=== PATIENT | female | born 1935 | race Caucasian/White ===

== ENCOUNTER → 2020-06-25 10:30 | Outpatient (CLI) | payer MEDICARE, OTHER, SELFPAY ==
--- NOTE | 2020-06-25 10:33 | DI.RAD.S_ITS ---
PROCEDURE: XR CHEST 2V INDICATIONS: rib pain TECHNIQUE: 2 views of the chest were acquired. COMPARISON: [facility], , CHEST 1 VIEW, 02/27/2015, 11:19. FINDINGS: Surgical changes and devices: Surgical clips in bilateral axilla and left breast are seen. Lungs and pleura: There is hyperinflation. No focal infiltrate. No pleural effusions or pneumothorax. Mediastinum: Mediastinal contours are normal. Heart size is normal. Bones and chest wall: No suspicious bony abnormalities. Soft tissues appear unremarkable. IMPRESSION: No acute cardiopulmonary pathology. COPD. Dictated by: Satish Woodward M.D. on 06/25/2020 at 13:23 Approved by: Satish Woodward M.D. on 06/25/2020 at 13:26
== END ==
PROVIDERS: Family Provider Family Medicine; PCP Family Medicine; Referring Provider Family Medicine; Visit Provider Family Medicine
DX: R07.81 Pleurodynia (principal); J44.9 Chronic obstructive pulmonary disease, unspecified
CPT/HCPCS: 71046

== ENCOUNTER → 2021-06-01 11:00 | Outpatient (CLI) | payer MEDICARE, OTHER, SELFPAY ==
--- NOTE | 2021-06-01 11:01 | DI.RAD.S_ITS ---
PROCEDURE: XR LUMBAR SPINE MIN 4V INDICATIONS: BACK PAIN TECHNIQUE: 5 views of the lumbar spine were acquired, including bilateral oblique views. COMPARISON: [facility], SPINE LUMB MIN 4VW, 11/10/2016, 15:28. FINDINGS: Bones: 5 nonrib-bearing vertebrae are present. Levocurvature of the lumbar spine, which may reflect degenerative scoliosis. The vertebral body heights are essentially maintained. Disc height loss with endplate osteophytosis, partially exaggerated by the aforementioned curvature. Facet arthrosis, causing neural foraminal narrowing. Soft tissues: Overlying bowel gas pattern is normal. No suspicious soft tissue calcifications. Oblique images: No pars defects. IMPRESSION: Levoscoliosis, possibly degenerative. Dictated by: Nishant Arcos M.D. on 06/01/2021 at 12:08 Approved by: Nishant Arcos M.D. on 06/01/2021 at 12:11
== END ==
PROVIDERS: Family Provider Family Medicine; PCP Family Medicine; Referring Provider Physical Medicine & Rehabilitation; Visit Provider Physical Medicine & Rehabilitation
DX: M41.25 Other idiopathic scoliosis, thoracolumbar region (principal); M54.9 Dorsalgia, unspecified; R07.81 Pleurodynia
CPT/HCPCS: 72110; 99214

== ENCOUNTER → 2021-06-09 09:46 | Outpatient (CLI) | payer MEDICARE, OTHER, SELFPAY ==
--- NOTE | 2021-06-09 09:47 | DI.MRI.S_ITS ---
PROCEDURE: MR LUMBAR SPINE WO CON INDICATIONS: Left-sided pain status post fall thoracolumbar junction TECHNIQUE: Noncontrast sagittal T1 spin echo and T2 fast echo, sagittal STIR, axial T1 and T2 fast spin echo through the lumbar spine. In cases with scoliosis, additional coronal T2 fast spin echo may be performed. COMPARISON: [facility], CR, XR LUMBAR SPINE MIN 4V, 06/01/2021, 11:01. [facility], CR, SPINE LUMB MIN 4VW, 11/10/2016, 15:28. FINDINGS: Image quality: Excellent. Alignment and Curvature: There is trace L1-L2 and L2-L3 retrolisthesis. There is approximately 30? of convex left scoliosis. Bone Marrow: Modic type 3 reactive endplate changes noted adjacent to the L1-L2 and L2-L3 discs. No acute vertebral body compression fractures. Spinal Cord: Conus medullaris terminates at the L1 level. Visualized cord demonstrates normal signal and size. Paraspinous Soft Tissues: No paravertebral masses. T12-L1: Loss of disc signal and slight loss of disc height. Mild to moderate diffuse disc bulge. Mild bilateral facet hypertrophy. Mild narrowing of the central canal. Mild bilateral neural foraminal narrowing. No neural compression. L1-L2: Loss of disc signal and height. Mild to moderate diffuse disc bulge. Mild bilateral facet hypertrophy. Mild to moderate narrowing of the central canal. Moderate bilateral neural foraminal narrowing. No neural compression. L2-L3: Loss of disc signal and height. Mild, diffuse disc bulge. Mild bilateral facet hypertrophy. Mild to moderate narrowing of the central canal. Severe right and mild left neural foraminal narrowing with slight compression of the exiting right L2 nerve root. L3-L4: Loss of disc signal. Moderate, diffuse disc bulge. Mild bilateral facet hypertrophy. Moderate ligamentum flavum hypertrophy. Moderate narrowing of the central canal. Mild to moderate bilateral neural foraminal narrowing. No neural compression. L4-L5: Loss of disc signal. Moderate, diffuse disc bulge. Moderate bilateral facet hypertrophy. Moderate ligamentum flavum hypertrophy. Severe narrowing of the central canal with compression of the nerve roots of the cauda equina. Mild right and severe left neural foraminal narrowing with compression of the exiting left L4 nerve root. L5-S1: Loss of disc signal. Mild, diffuse disc bulge. Mild right moderate left facet hypertrophy. Mild narrowing of the central canal. Mild right and severe left neural foraminal narrowing with compression of the exiting left L5 nerve root. IMPRESSION: 1. Convex left scoliosis. 2. Multilevel degenerative disc disease. 3. Multilevel facet arthropathy. 4. Severe L4-L5 central canal narrowing with compression of the traversing nerve roots of the cauda equina. 5. Severe right L2-L3 neural foraminal narrowing with compression of the exiting right L2 nerve root. Severe L4-L5 and L5-S1 neural foraminal narrowing with compression of the exiting left L4 and L5 nerve roots. Dictated by: Gin Ghosh MD, PhD on 06/09/2021 at 14:57 Approved by: Gin Ghosh MD, PhD on 06/09/2021 at 15:02
== END ==
PROVIDERS: Family Provider Family Medicine; PCP Family Medicine; Referring Provider Physical Medicine & Rehabilitation; Visit Provider Physical Medicine & Rehabilitation
DX: M51.37 Other intervertebral disc degeneration, lumbosacral region (principal); M47.816 Spondylosis without myelopathy or radiculopathy, lumbar region; M47.817 Spondylosis without myelopathy or radiculopathy, lumbosacral region; M51.36 Other intervertebral disc degeneration, lumbar region; M48.061 Spinal stenosis, lumbar region without neurogenic claudication; M48.07 Spinal stenosis, lumbosacral region; M41.86 Other forms of scoliosis, lumbar region; M54.9 Dorsalgia, unspecified; R20.0 Anesthesia of skin; R20.2 Paresthesia of skin; M41.9 Scoliosis, unspecified
CPT/HCPCS: 72148

== ENCOUNTER 2021-09-15 14:11 | Outpatient (CLI) | payer MEDICARE, OTHER, SELFPAY ==
[2021-09-15] VITALS (7 sets, daily range): BP systolic 120–162; BP diastolic 64–70; PULSE 55–62; RESP 12–19; TEMP 36.6; O2SAT 97–100
--- NOTE | 2021-09-15 14:12 | DI.RAD.S_ITS ---
PROCEDURE: PAIN L INTERLAMINAR/CAUDAL INJ INDICATIONS: SPONDYLOSIS COMPARISON: [facility], CR, XR LUMBAR SPINE MIN 4V, 06/01/2021, 11:01. [facility], MR, MR LUMBAR SPINE WO CON, 06/09/2021, 9:55. FINDINGS: Fluoroscopic spot filming was performed to verify placement of a spinal needle at the L2-L3 level, as labeled on the films. Appropriate location of the needle tip was confirmed by injection of iodinated contrast. IMPRESSION: Intraprocedural examination within normal limits. Dictated by: Franki Castro M.D. on 09/15/2021 at 14:58 Approved by: Franki Castro M.D. on 09/15/2021 at 14:58
[2021-09-15 14:46] LABS: COVID19 -Nasal RAPID Negative (Negative)
[2021-09-15] MEDS: MIDAZOLAM 2 MG/2 ML VIAL IV (15:20)
[2021-09-15] MEDS: IOPAMIDOL 15 ML VIAL 3 ML INJ (15:23)
[2021-09-15] MEDS: DEXAMETHASONE 10 MG/ML VIAL 20 MG INJ (15:24)
[2021-09-15] MEDS: BETAMETHASONE 30 MG/5 ML MDV 6 MG INJ (15:24)
[2021-09-15] MEDS: BUPIVACAINE 0.25% (PF) VIAL 2 ML INJ (15:24)
--- NOTE | 2021-09-15 15:36 | P.PCN_ITS ---
Date/Time/Diagnoses Date of procedure: 09/15/21 Time of procedure: 15:36 Pre-procedure diagnosis: 1. HNP WITH RADICULAR FEATURES, 2. MULTILEVEL CENTRAL STENOSIS, Post-procedure diagnosis: same Procedure Notes Procedure: 1. FLUOROSCOPICALLY GUIDED CONTRAST CONTROLLED INTERLAMINAR EPIDURAL STEROID INJECTION - L2/3 Indications: Miracle is referred by Dr. Manjarrez for treatment of Bilateral Foraminal Stenosis L>R LE symptoms. Physician: Hunter Lebron Total Fluoroscopy time (seconds): 8 Total sedation minutes: 10 Complications: none Procedure in detail & Post-procedure care: FINDINGS Multilevel Central Spinal Stenosis with Nerve Root Compression DESCRIPTION OF PROCEDURE Fluoroscopically guided, contrast-controlled L2/3 translaminar epidural steroid injection. Following review of allergy and review of potential side effects and complications, including, but not necessarily limited to, infection, allergic reaction, local tissue breakdown, temporary as well as permanent nerve injury, paralysis, stroke and possible , the patient indicated that the patient understood and agreed to proceed. An informed consent document was signed by the patient, witnessed by a nurse, and placed in the patient's chart. Additionally, other treatment options including modalities, medications, and physical therapy were reviewed with the patient. After review of previous anaesthesic history and IV conscious sedation the patient was deemed safe to proceed with today?s procedure with IV conscious sedation as ASA class II designation. Safety time-out was performed to confirm patient ID, procedure to be performed and site of procedure. IV sedation was accomplished with a combination of 2mg Versed administered by the RN after DO order, titrated to patient comfort during the course of the procedure while the patient remained responsive to all verbal commands. In the prone position, following sterile prep and drape of the lumbar region,the L2/3 translaminar space was identified fluoroscopically. The skin was anesthetized via a 25-gauge, 1.5-inch needle with 1% lidocaine solution. At this point, a 22-gauge short bevel spinal needle was atraumatically introduced and advanced under fluoroscopic guidance into the region of the L2/3 translaminar space. Depth was confirmed on lateral view. Radiological data, including multiple fluoroscopic views of the lumbar spine, re veal a spinal needle at the L2/3 translaminar space. Lateral views then show placement of the needle in the epidural space. Subsequent views show contrast material flowing superiorly and inferiorly in the epidural space. No vascular or intrathecal uptake is observed. At this point, using loss of resistance technique with saline and air, the epidural space was entered. This was confirmed following negative aspiration with injection of approximately 1.5 cc of Isovue 200, showing excellent epidural flow without vascular or intrathecal uptake. At this point, 1 cc of 1% lidocaine solution combined with 3cc or 20mg of dexamethasone and 6mg of betamethasone was injected without incident. The patient tolerated the procedure well without signs or symptoms of complications prior to transfer to the recovery area continued monitoring without incident. The patient was then transferred to the recovery area where they were observed for an appropriate period of time after the injection. The patient reported a VAS score of 6 prior to the procedure and a post-procedure VAS of 0. POST OP INSTRUCTIONS The patient was provided a Pain Log to continue to record their response to the target-specific procedure prior to follow-up visit with their referring physician. Additionally, specific post-injection care instructions and a contact number to our office were provided if concerns arise regarding possible complications associated with the procedure are suspected.
== END 2021-09-15 15:51 | disposition home or self-care (01) ==
LOC: RAD 14:12
PROVIDERS: Family Provider Family Medicine; PCP Family Medicine; Referring Provider Physical Medicine & Rehabilitation; Visit Provider Physical Medicine & Rehabilitation
DX: M47.816 Spondylosis without myelopathy or radiculopathy, lumbar region (principal); M48.062 Spinal stenosis, lumbar region with neurogenic claudication; Z20.822 Contact with and (suspected) exposure to COVID-19
CPT/HCPCS: 62323; 87635; 99152; J0702; J1100; J2250

== ENCOUNTER → 2021-10-21 08:28 | Outpatient (CLI) | payer MEDICARE, SELFPAY ==
[2021-10-21 20:30] LABS: Add Manual Diff / Slide Review NO; Basophils Absolute Auto 100 /uL (0-100); Basophils Percent Auto 0.9 % (0-2); Eosinophils Absolute Auto 200 /uL (0-450); Eosinophils Percent Auto 2.7 % (2-4); Hematocrit 36.9 % (36-46); Hemoglobin 12.4 g/dL (12.0-16.0); Lymphocytes Absolute Auto 1200 /uL (1100-4500); Lymphocytes Percent Auto 17.5 % (25-40); Mean Corpuscular HGB Conc 33.7 % (30-36); Mean Corpuscular Hemoglobin 30.7 PG (26-34); Monocytes Absolute Auto 900 /uL (0-900); Monocytes Percent Auto 12.5 % (3-14); Neutrophils Absolute Auto 4500 /uL (1500-7000); Neutrophils Percent Auto 66.4 % (50-75); Platelet Count 375 X10^3/uL (150-400); Red Blood Cell Count 4.05 X10^6/uL (4.0-5.2); Red Cell Distribution Width 13.9 % (11.6-14.8); White Blood Cell Count 6.8 X10^3/uL (4.5-11.0)
[2021-10-21 20:42] LABS: Appearance Urine UA CLEAR; Bilirubin Urine UA NEGATIVE (NEGATIVE); Color Urine UA YELLOW; Glucose Urine UA NEGATIVE (Negative); Ketones Urine UA NEGATIVE (NEGATIVE); Leukocyte Esterase Urine UA NEGATIVE (NEGATIVE); Nitrite Urine UA NEGATIVE (Negative); Occult Blood Urine UA NEGATIVE (Negative); Protein Urine UA NEGATIVE (Negative); Specific Gravity Urine UA <=1.005 (1.000-1.035); Urobilinogen Urine UA 0.2 E.U./dL (0.2)
[2021-10-21 20:46] LABS: Hemoglobin A1C% w Est Avg Glu 5.5 % (4.0-6.0)
[2021-10-21 20:49] LABS: Alanine Aminotransferase 16 IU/L (<35); Albumin Globulin Ratio 1.7 (1.0-2.8); Alkaline Phosphatase 61 U/L (38-126); Aspartate Aminotransferase 28 IU/L (14-36); BUN Creatinine Ratio 24.6 (6-22); Bilirubin Total 0.5 mg/dL (0.2-1.3); Blood Urea Nitrogen 17 mg/dL (7-17); Calcium 9.1 mg/dL (8.4-10.2); Carbon Dioxide 28 mmol/L (22-32); Chloride 96 mmol/L (98-107); Cholesterol 191 mg/dL (140-199); Estimated Glomerular Filt Rate > 60 mL/min (>60); Globulin 2.4 g/dL (1.7-4.1); Glucose 82 mg/dL (80-110); HDL Cholesterol 78 mg/dL (40-60); HEMOLYSIS < 15 (0-50); LDL Cholesterol Calculated 98 mg/dL (<100); Sodium 132 mmol/L (137-145); Total Protein 6.4 g/dL (6.3-8.2); Triglycerides 77 mg/dL (35-150)
[2021-10-22 01:18] LABS: Bacteria Urine None Seen; Culture Indicated Urine Cult Not Indicated; RBC Urine None Seen (0-5/HPF); WBC Urine None Seen (0-5/HPF)
== END ==
PROVIDERS: Family Provider Family Medicine; PCP Family Medicine; Visit Provider Physician Assistant
DX: Z13.1 Encounter for screening for diabetes mellitus (principal); G45.9 Transient cerebral ischemic attack, unspecified; N39.46 Mixed incontinence; E78.2 Mixed hyperlipidemia; I10 Essential (primary) hypertension; R31.9 Hematuria, unspecified; Z13.220 Encounter for screening for lipoid disorders
CPT/HCPCS: 80053; 80061; 81001; 83036; 85025

== ENCOUNTER → 2021-12-15 11:08 | Outpatient (CLI) | payer MEDICARE, SELFPAY ==
[2021-12-15 19:42] LABS: Alanine Aminotransferase 19 IU/L (<35); Albumin 4.1 g/dL (3.5-5.0); Albumin Globulin Ratio 1.5 (1.0-2.8); Alkaline Phosphatase 62 U/L (38-126); Aspartate Aminotransferase 35 IU/L (14-36); BUN Creatinine Ratio 27.8 (6-22); Bilirubin Total 0.4 mg/dL (0.2-1.3); Blood Urea Nitrogen 22 mg/dL (7-17); Calcium 9.5 mg/dL (8.4-10.2); Carbon Dioxide 30 mmol/L (22-32); Chloride 103 mmol/L (98-107); Estimated Glomerular Filt Rate > 60 mL/min (>60); Globulin 2.8 g/dL (1.7-4.1); Glucose 90 mg/dL (80-110); HEMOLYSIS < 15 (0-50); Potassium 4.1 mmol/L (3.4-5.1); Sodium 139 mmol/L (137-145); Total Protein 6.9 g/dL (6.3-8.2)
[2021-12-15 19:46] LABS: Vitamin D 25 Hydroxy (D3) 46.2 ng/mL (30.0-100.0)
[2021-12-15 20:00] LABS: TSH w/ Reflex to FT4 1.12 uIU/mL (0.47-4.68)
[2021-12-15 20:01] LABS: Sodium Urine Random 89 mmol/L (30-90)
[2021-12-15 20:20] LABS: Vitamin B12 608 pg/mL (239-931)
[2021-12-17 13:36] LABS: Osmolality, Serum 295 mOsmol/kg (280-301)
[2021-12-17 15:02] LABS: Osmolality Urine 666 mOsmol/kg (.)
== END ==
PROVIDERS: Family Provider Family Medicine; PCP Family Medicine; Visit Provider Physician Assistant
DX: M81.0 Age-related osteoporosis without current pathological fracture (principal); R53.83 Other fatigue; E87.1 Hypo-osmolality and hyponatremia; G62.9 Polyneuropathy, unspecified; I10 Essential (primary) hypertension
CPT/HCPCS: 80053; 82306; 82607; 83930; 83935; 84300; 84443

== ENCOUNTER → 2022-01-05 09:37 | Outpatient (CLI) | payer MEDICARE, OTHER, SELFPAY | PROVIDERS: Family Provider Family Medicine; PCP Family Medicine; Referring Provider Physician Assistant; Visit Provider Physician Assistant | DX: M81.0 Age-related osteoporosis without current pathological fracture (principal); M85.89 Other specified disorders of bone density and structure, multiple sites | CPT/HCPCS: 77080 ==

== ENCOUNTER → 2022-08-12 08:34 | Outpatient (CLI) | payer MEDICARE, OTHER, SELFPAY ==
[2022-08-12 09:48] LABS: Add Manual Diff / Slide Review NO; Basophils Absolute Auto 100 /uL (0-100); Basophils Percent Auto 1.1 % (0-2); Eosinophils Absolute Auto 300 /uL (0-450); Eosinophils Percent Auto 3.8 % (2-4); Hematocrit 39.1 % (36-46); Lymphocytes Absolute Auto 1500 /uL (1100-4500); Lymphocytes Percent Auto 17.9 % (25-40); Mean Corpuscular HGB Conc 33.1 % (30-36); Mean Corpuscular Hemoglobin 30.3 PG (26-34); Mean Corpuscular Volume 91.3 fL (80-100); Monocytes Absolute Auto 800 /uL (0-900); Neutrophils Absolute Auto 5800 /uL (1500-7000); Neutrophils Percent Auto 68.2 % (50-75); Platelet Count 328 X10^3/uL (150-400); Red Blood Cell Count 4.28 X10^6/uL (4.0-5.2); Red Cell Distribution Width 13.8 % (11.6-14.8); White Blood Cell Count 8.5 X10^3/uL (4.5-11.0)
[2022-08-12 10:11] LABS: Alanine Aminotransferase 22 IU/L (<35); Albumin 4.1 g/dL (3.5-5.0); Albumin Globulin Ratio 1.6 (1.0-2.8); Alkaline Phosphatase 69 U/L (38-126); Aspartate Aminotransferase 29 IU/L (14-36); BUN Creatinine Ratio 23.5 (6-22); Bilirubin Total 0.4 mg/dL (0.2-1.3); Blood Urea Nitrogen 19 mg/dL (7-17); Calcium 9.6 mg/dL (8.4-10.2); Carbon Dioxide 28 mmol/L (22-32); Chloride 103 mmol/L (98-107); Estimated Glomerular Filt Rate > 60 mL/min (>60); Globulin 2.6 g/dL (1.7-4.1); Glucose 72 mg/dL (80-110); HEMOLYSIS < 15 (0-50); Potassium 4.4 mmol/L (3.4-5.1); Sodium 138 mmol/L (137-145); Total Protein 6.7 g/dL (6.3-8.2)
== END ==
PROVIDERS: Family Provider Family Medicine; PCP Physician Assistant; Referring Provider Physician Assistant; Visit Provider Physician Assistant
DX: I10 Essential (primary) hypertension (principal); R53.83 Other fatigue
CPT/HCPCS: 36415; 80053; 85025

== ENCOUNTER 2022-11-18 09:30 | Outpatient (RCR) | payer MEDICARE, OTHER, SELFPAY ==
--- NOTE | 2022-04-20 12:00 | PT.OTN ---
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) Unspecified urinary incontinence (04/20/22) Physical Therapy Treatment Note PT-OP-A Visit Information Start: 04/20/22 10:35 Freq: Status: Active Protocol: Document 04/20/22 11:15 [facility] (Rec: 04/20/22 11:57 [facility] [id number]) Out-Patient Physical Therapy Visit Information Visit Information Visit Type Initial Evaluation Visit Start Time 11:15 Visit Stop Time 12:00 Total Visit Minutes 45 Visit Number 1 Evaluation Information Evaluation Date 04/20/22 PT-OP-B Current Condition Start: 04/20/22 10:35 Freq: Status: Active Protocol: Document 04/20/22 11:15 [facility] (Rec: 04/20/22 11:57 [facility] [id number]) Current Condition History of Current Condition Onset Date in this last year Current Complaints urinary leakage, History of Current Condition urinary leakage that surprises her and comes on all of a sudden, she has been practicing her kegels and is not sure she is doing it right . It helped a little bit at first but she is not sure now if is is helping Pt notes she can occasionally have bowel movement that she can't hold She notes swelling in her feet and legs at night. She does put her feet up the wall x 10 min both morning and night. She has more good nights than bad nights. Her leakage can be just about any time, she wears 1 pad per day and by the end of the day it will be damp She had a cortisone injection in the left L5 last 6 months She took a fall 2 years ago tripping over a steel jose falling on her right side and it took her a year to fully feel back to her self Treatment Goals Patient/Caregiver Goals to eliminate urinary incontinence PT-OP-I Pelvic Floor Start: 04/20/22 10:35 Freq: Status: Active Protocol: Document 04/20/22 11:15 [facility] (Rec: 04/20/22 17:40 [facility] [id number]) Pelvic Floor Assessment Urine Pelvic Floor Surgery No Other Urinary Symptoms pt reports she will leak with certain movements and does not describe a urge to void. She states she never knows when it will happen and calls her leaks surprises Leakage Size Medium Leaks Per Day 3+ Voiding Frequency pt notes she doesn't void all that often but has been trying to void every Nocturia no Urine Pad Type Maxi Pad Pelvic Clock Pelvic Clock 6-9 Guarding Pelvic Clock 9-12 Guarding Pelvic Clock Other pt has guarding on the lateral rosen of the levator ani, it is difficult to relax the lateral rosen of the levator ani in between contractions Contraction Ability Voluntary Relaxation Weak Manual Muscle Testing Left 3 Manual Muscle Testing Right 3 Manual Muscle Testing Anterior 3 Manual Muscle Testing Posterior 3 Muscle Endurance (Seconds) 4 PT-OP-Q Treatments Start: 04/20/22 10:35 Freq: Status: Active Protocol: Document 04/20/22 11:15 [facility] (Rec: 04/20/22 17:35 [facility] [id number]) Therapeutic Exercises Supine Exercises supine hip roll outs Reps/Minutes x 20 reps supine ball squeeze Reps/Minutes x 10 reps supine pelvic floor ioslations Side bilateral Reps/Minutes x 10 reps 10 sec on 10 sec off 3 times per day PT-OP-T Assessment and Plan Start: 04/20/22 10:35 Freq: Status: Active Protocol: Document 04/20/22 11:15 [facility] (Rec: 04/20/22 18:54 [facility] [id number]) Physical Therapy Assessment Rehab Potential Rehabilitation Potential Excellent Evaluation Complexity Number of Personal Factors/Comorbidities 0 Number of Body Systems Impaired 1-2 Clinical Presentation at Evaluation Stable Impairments Impairments Activity Tolerance,Soft Tissue Mobility,Strength,Tone Other Impairments urinary incontinence Goals 3 Impairment Guarding of the lateral rosen of the pelvic floor with decreased ability to fully relax the pelvic floor Short Term Goal (STG) BJ is educated on relaxed awareness of the pelvic floor and the importance of fully relaxing following a pelvic floor contraction STG Duration 4 weeks Environmental Services Worker Goal (LTG) BJ is able to relax to baseline on EMG biofeedback in between pelvic floor contractions LTG Duration 12 weeks 2 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 Short Term Goal (STG) BJ is able to sustain a pelvic floor contraction x 10 seconds in supine utilizing EMG biofeedback STG Duration 5 weeks Retirement Goal (LTG) BJ is able to sustain a pelvic floor contraction for 5-10 seconds in standing positions LTG Duration 12 weeks 1 Impairment BJ has Complaints of urinary incontinence that happens by surprise with activity Short Term Goal (STG) Pt is educated on both triggers that may cause sudden urgency as well as bladder irritants and bladder diary STG Duration 4 weeks Retirement Goal (LTG) BJ is better able to notice triggers that may cause leakage and with strengthening her pelvic floor reports a overall reduction in urinary leakage LTG Duration 12 weeks Assessment Summary Assessment ROEL is a 86 year old female referred to PT with complaints of urinary leakage that happens as a surprise throughout the day and occurs randomly. ROEL is active and walks several times per week and does yoga daily. She states she doesn't leak with cough or sneeze and doesn't feel she has urgency. She occasionally has small leaks of stool. With examination ROEL was guarded in the lateral rosen of her levator ani and she has difficulty relaxing her pelvic floor. Her contraction fatigues after holding 4 seconds. She will benefit from endurance training of her pelvic floor. Treatment will also include strengthening her hips to help give additional support to her levator ani. Physical Therapy Plan Frequency and Duration Frequency of Treatment 1x/Week Duration of treatment (weeks) 12 Plan of Care Start Date 04/20/22 Plan of Care End Date 06/19/22 Therapeutic Interventions Therapeutic Interventions Home Exercise Program,Manual Therapy,Neuromuscular Re- education,Self-Care/Home Management,Therapeutic Exercises Modalities Biofeedback Next Visit Focus/Plan Next Note Type Treatment Note Next Visit Plan Initiate EMG biofeedback next visit working on relaxed awareness of the pelvic floor and endurance training, review triggers that may be causing leakage.
--- NOTE | 2022-04-20 12:00 | PT.OPPOC ---
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 Manuel Manjarrez MD Family Provider Physician Specialty: Family Practice Address: [address] [place] [address], [id number] Email: [email or web address] Maddie Gutierrez MD Attending Provider Physician Referring Provider Specialty: Gynecology REGIONAL ADMINISTRATIVE ASSISTANT Obstetrics Address: [address] [place] [address], [id number] Email: [email or web address] Plan Of Care PT-OP-T Assessment and Plan Start: 04/20/22 10:35 Freq: Status: Active Protocol: Document 04/20/22 11:15 [facility] (Rec: 04/20/22 18:54 [facility] [id number]) Physical Therapy Assessment Rehab Potential Rehabilitation Potential Excellent Evaluation Complexity Number of Personal Factors/Comorbidities 0 Number of Body Systems Impaired 1-2 Clinical Presentation at Evaluation Stable Impairments Impairments Activity Tolerance,Soft Tissue Mobility,Strength,Tone Other Impairments urinary incontinence Goals 3 Impairment Guarding of the lateral rosen of the pelvic floor with decreased ability to fully relax the pelvic floor Short Term Goal (STG) BJ is educated on relaxed awareness of the pelvic floor and the importance of fully relaxing following a pelvic floor contraction STG Duration 4 weeks Engineering Program Analyst Goal (LTG) BJ is able to relax to baseline on EMG biofeedback in between pelvic floor contractions LTG Duration 12 weeks 2 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 Short Term Goal (STG) BJ is able to sustain a pelvic floor contraction x 10 seconds in supine utilizing EMG biofeedback STG Duration 5 weeks Custodial Goal (LTG) BJ is able to sustain a pelvic floor contraction for 5-10 seconds in standing positions LTG Duration 12 weeks 1 Impairment ROEL has Complaints of urinary incontinence that happens by surprise with activity Short Term Goal (STG) Pt is educated on both triggers that may cause sudden urgency as well as bladder irritants and bladder diary STG Duration 4 weeks Custodial Goal (LTG) ROEL is better able to notice triggers that may cause leakage and with strengthening her pelvic floor reports a overall reduction in urinary leakage LTG Duration 12 weeks Assessment Summary Assessment ROEL is a 86 year old female referred to PT with complaints of urinary leakage that happens as a surprise throughout the day and occurs randomly. ROEL is active and walks several times per week and does yoga daily. She states she doesn't leak with cough or sneeze and doesn't feel she has urgency. She occasionally has small leaks of stool. With examination ROEL was guarded in the lateral rosen of her levator ani and she has difficulty relaxing her pelvic floor. Her contraction fatigues after holding 4 seconds. She will benefit from endurance training of her pelvic floor. Treatment will also include strengthening her hips to help give additional support to her levator ani. Physical Therapy Plan Frequency and Duration Frequency of Treatment 1x/Week Duration of treatment (weeks) 12 Plan of Care Start Date 04/20/22 Plan of Care End Date 06/19/22 Therapeutic Interventions Therapeutic Interventions Home Exercise Program,Manual Therapy,Neuromuscular Re- education,Self-Care/Home Management,Therapeutic Exercises Modalities Biofeedback Next Visit Focus/Plan Next Note Type Treatment Note Next Visit Plan Initiate EMG biofeedback next visit working on relaxed awareness of the pelvic floor and endurance training, review triggers that may be causing leakage. Plan of Care Dates Plan of Care Start Date 04/20/22 Plan of Care End Date 06/19/22 Electronically Signed by: Montserrat Warren, PT 04/21/22 [id number] If you are in agreement with this Plan of Care, please return a signed and dated copy. I have reviewed this Plan of Care and certify that the skilled therapy services above are required to meet the patient?s needs. Physician Signature Date Printed Name and Credentials Clinical Instructor Signature Printed Name and Credentials
--- NOTE | 2022-05-05 13:38 | PT.OTN ---
Current Diagnoses Full incontinence of feces (05/05/22) Unspecified urinary incontinence (05/05/22) Physical Therapy Treatment Note PT-OP-A Visit Information Start: 04/20/22 10:35 Freq: Status: Active Protocol: Document 05/05/22 12:54 [facility] (Rec: 05/05/22 13:38 [facility] [id number]) Out-Patient Physical Therapy Visit Information Visit Information Visit Type Treatment Note Visit Start Time 12:50 Visit Stop Time 13:40 Total Visit Minutes 45 Visit Number 2 PT-OP-B Current Condition Start: 04/20/22 10:35 Freq: Status: Active Protocol: Document 04/20/22 11:15 [facility] (Rec: 04/20/22 11:57 [facility] [id number]) Current Condition History of Current Condition Onset Date in this last year Current Complaints urinary leakage, History of Current Condition urinary leakage that suprises her and comes on all of a sudden, she has been practicing her kegels and is not sure she is doing it right . It helped a little bit at first but she is not sure now if is is helping Pt notes she can occasionally have bowelmovement that she can't hold She notes swelling in her feet and legs at night. SHe does put her feet up the wall x 10 min both morning and night. She has more good nights than bad nights. Her leakage can be just about any time, she wears 1 pad per day and by the end of the day it will be damp She had a cortisone injection in the left L5 last 6 months She took a fall 2 years ago tripping over a steel jose falling on her right side and it took her a year to fully feel back to her self Treatment Goals Patient/Caregiver Goals to eliminate urinary incontinence PT-OP-C Subjective Start: 04/20/22 10:35 Freq: Status: Active Protocol: Document 05/05/22 12:54 [facility] (Rec: 05/05/22 13:38 [facility] [id number]) OP-PT Subjective Patient Comments Patient Comments pt has gotten a lashae fit for home She notes that some of her leakage does seem to be spontaneous. PT-OP-I Pelvic Floor Start: 04/20/22 10:35 Freq: Status: Active Protocol: Document 04/20/22 11:15 [facility] (Rec: 04/20/22 17:40 [facility] [id number]) Pelvic Floor Assessment Urine Pelvic Floor Surgery No Other Urinary Symptoms pt reports she will leak with certain movements and does not describe a urge to void. She states she never knows when it will happen and calls her leaks suprises Leakage Size Medium Leaks Per Day 3+ Voiding Frequency pt notes she doesn't void all that often but has been trying to void every Nocturia no Urine Pad Type Maxi Pad Pelvic Clock Pelvic Clock 6-9 Guarding Pelvic Clock 9-12 Guarding Pelvic Clock Other pt has guarding on the lateral rosen of the levator ani, it is difficult to relax the lateral rosen of the levator ani in between contractions Contraction Ability Voluntary Relaxation Weak Manual Muscle Testing Left 3 Manual Muscle Testing Right 3 Manual Muscle Testing Anterior 3 Manual Muscle Testing Posterior 3 Muscle Endurance (Seconds) 4 PT-OP-Q Treatments Start: 04/20/22 10:35 Freq: Status: Active Protocol: Document 05/05/22 12:54 [facility] (Rec: 05/05/22 13:38 [facility] [id number]) Therapeutic Exercises Supine Exercises supine hip roll outs Reps/Minutes x 20 reps supine pelvic floor ioslations Reps/Minutes 11,2 uv and max of 23.3 uv Other Exercises sit-stand with pelvic floor engagement Comments HEP Neuro Re-Education Treatment Other Activities EMG biofeedback for the pelvic floor Comments pt was given a rectal sensor today to use as the vaginal one was too tight for her. She will use this at home as well to gently stretch her pelvic floor, able to get to baseline on EMG, decreased ability to sustain a pelvic floor contraction Self-Care/Home Management Treatment Education Patient Education Home Exercise Program Other Education education on using the rectal sensor vaginally to help with stretching of the tissue prior to using the perifit PT-OP-T Assessment and Plan Start: 04/20/22 10:35 Freq: Status: Active Protocol: Document 05/05/22 12:54 [facility] (Rec: 05/05/22 13:38 [facility] [id number]) Physical Therapy Assessment Goals 3 Impairment Guarding of the lateral rosen of the pelvic floor with decreased ability to fully relax the pelvic floor Short Term Goal (STG) BJ is educated on relaxed awareness of the pelvic floor and the importance of fully relaxing following a pelvic floor contraction STG Duration 4 weeks [employer] Goal (LTG) BJ is able to relax to baseline on EMG biofeedback inbetween pelvic floor contractions LTG Duration 12 weeks 2 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 Short Term Goal (STG) ROEL is able to sustain a pelvic floor contraction x 10 seconds in supine utilizing EMG biofeedback STG Duration 5 weeks Longterm Goal (LTG) ROEL is able to sustain a pelvic floor contraction for 5-10 seconds in standing positions LTG Duration 12 weeks 1 Impairment ROEL has Complaints of urinary incontinence that happens by suprise with activity Short Term Goal (STG) Pt is educated on both triggers that may cause sudden urgency as well as bladder irritants and bladder diary STG Duration 4 weeks [employer] Goal (LTG) ROEL is better able to notice triggers that may cause leakage and with strenghening her pelvic floor reports a overall reduction in urinary leakage LTG Duration 12 weeks Assessment Summary Assessment EMG biofeedback was initiated today for ROEL. The rectal sensor was used as the vaginal one was too tight. She will also use this at home to help with vaginal wall stretching prior to using her perifit. She was able to relax to baseline on EMG biofeedback. Endurance is more difficult for her to sustain a contraction Physical Therapy Plan Frequency and Duration Frequency of Treatment 1x/Week Duration of treatment (weeks) 12 Plan of Care Start Date 04/20/22 Plan of Care End Date 06/19/22 Therapeutic Interventions Therapeutic Interventions Home Exercise Program,Manual Therapy,Neuromuscular Re- education,Self-Care/Home Management,Therapeutic Exercises Modalities Biofeedback Next Visit Focus/Plan Next Note Type Treatment Note Next Visit Plan Continue with EMG biofeedback working on relaxed awareness of the pelvic floor as well as contraction
--- NOTE | 2022-06-09 10:31 | PT.OTN ---
Current Diagnoses Full incontinence of feces (06/09/22) Unspecified urinary incontinence (06/09/22) Physical Therapy Treatment Note PT-OP-A Visit Information Start: 04/20/22 10:35 Freq: Status: Active Protocol: Document 06/09/22 09:42 [facility] (Rec: 06/09/22 10:31 [facility] [id number]) Out-Patient Physical Therapy Visit Information Visit Information Visit Type Treatment Note Visit Start Time 09:45 Visit Stop Time 10:30 Total Visit Minutes 45 Visit Number 4 PT-OP-B Current Condition Start: 04/20/22 10:35 Freq: Status: Active Protocol: Document 04/20/22 11:15 [facility] (Rec: 04/20/22 11:57 [facility] [id number]) Current Condition History of Current Condition Onset Date in this last year Current Complaints urinary leakage, History of Current Condition urinary leakage that suprises her and comes on all of a sudden, she has been practicing her kegels and is not sure she is doing it right . It helped a little bit at first but she is not sure now if is is helping Pt notes she can occasionally have bowelmovement that she can't hold She notes swelling in her feet and legs at night. SHe does put her feet up the wall x 10 min both morning and night. She has more good nights than bad nights. Her leakage can be just about any time, she wears 1 pad per day and by the end of the day it will be damp She had a cortisone injection in the left L5 last 6 months She took a fall 2 years ago tripping over a steel jose falling on her right side and it took her a year to fully feel back to her self Treatment Goals Patient/Caregiver Goals to eliminate urinary incontinence PT-OP-C Subjective Start: 04/20/22 10:35 Freq: Status: Active Protocol: Document 06/09/22 09:42 [facility] (Rec: 06/09/22 10:31 [facility] [id number]) OP-PT Subjective Patient Comments Patient Comments pt has been using the coconut oil and feels she is closer to being able to use the lashae fit at home. SHe is feeling discouraged it is taking her a while. PT-OP-I Pelvic Floor Start: 04/20/22 10:35 Freq: Status: Active Protocol: Document 04/20/22 11:15 [facility] (Rec: 04/20/22 17:40 [facility] [id number]) Pelvic Floor Assessment Urine Pelvic Floor Surgery No Other Urinary Symptoms pt reports she will leak with certain movements and does not describe a urge to void. She states she never knows when it will happen and calls her leaks suprises Leakage Size Medium Leaks Per Day 3+ Voiding Frequency pt notes she doesn't void all that often but has been trying to void every Nocturia no Urine Pad Type Maxi Pad Pelvic Clock Pelvic Clock 6-9 Guarding Pelvic Clock 9-12 Guarding Pelvic Clock Other pt has guarding on the lateral rosen of the levator ani, it is difficult to relax the lateral rosen of the levator ani in between contractions Contraction Ability Voluntary Relaxation Weak Manual Muscle Testing Left 3 Manual Muscle Testing Right 3 Manual Muscle Testing Anterior 3 Manual Muscle Testing Posterior 3 Muscle Endurance (Seconds) 4 PT-OP-Q Treatments Start: 04/20/22 10:35 Freq: Status: Active Protocol: Document 06/09/22 09:42 [facility] (Rec: 06/09/22 10:31 [facility] [id number]) Therapeutic Exercises Supine Exercises quick pelvic floor contractions Reps/Minutes 24.8 supine pelvic floor ioslations Supine Exercise Name vaginal sensor day 1 Reps/Minutes 20 average 29 max Manual Therapy Treatment Soft Tissue Mobilization pelvic floor manual therapy release Comments worked on releasing at the introitus today to help with relaxation of the tissue. Pt has palpable scar tissue and rugged edges too the vaginal introitus. She tolerated gentle manual therapy well. A size small dilator was then used and pt was instructed on home use of a dilator. Neuro Re-Education Treatment Other Activities EMG biofeedback for the pelvic floor Comments Pt was able to use the vaginal sensor today for EMG biofeedback. HEr resting tone was at baseline today Self-Care/Home Management Treatment Education Other Education pt educated on using coconut oil in the sensor prior to applying it as well as a lubricant for the vaginal tissue. pt was given a size small dilator to use to assist with stretching of the vaginal tissue for home. Pts goal is to be able to use her perifit PT-OP-T Assessment and Plan Start: 04/20/22 10:35 Freq: Status: Active Protocol: Document 06/09/22 09:42 [facility] (Rec: 06/09/22 10:31 [facility] [id number]) Physical Therapy Assessment Goals 3 Impairment Guarding of the lateral rosen of the pelvic floor with decreased ability to fully relax the pelvic floor Short Term Goal (STG) ROEL is educated on relaxed awareness of the pelvic floor and the importance of fully relaxing following a pelvic floor contraction STG Duration 4 weeks [facility] Goal (LTG) ROEL is able to relax to baseline on EMG biofeedback inbetween pelvic floor contractions GOAL MET LTG Duration 12 weeks 2 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 Short Term Goal (STG) ROEL is able to sustain a pelvic floor contraction x 10 seconds in supine utilizing EMG biofeedback STG Duration 5 weeks Attending Urologist Goal (LTG) BJ is able to sustain a pelvic floor contraction for 5-10 seconds in standing positions LTG Duration 12 weeks 1 Impairment ROEL has Complaints of urinary incontinence that happens by suprise with activity Short Term Goal (STG) Pt is educated on both triggers that may cause sudden urgency as well as bladder irritants and bladder diary STG Duration 4 weeks Attending Urologist Goal (LTG) ROEL is better able to notice triggers that may cause leakage and with strenghening her pelvic floor reports a overall reduction in urinary leakage LTG Duration 12 weeks Assessment Summary Assessment Pt was able to use the vaginal sensor today for the first time for the EMG biofeedback sensor. Manual therapy was used first to prepare the tissue and ROEL did well with this. She was able to tolerate the size small dilator and then was able to use the vaginal sensor today for EMG biofeedback. Her resting tone was at baseline today and endurance is improving. Physical Therapy Plan Frequency and Duration Frequency of Treatment 1x/Week Duration of treatment (weeks) 12 Plan of Care Start Date 04/20/22 Plan of Care End Date 06/19/22 Therapeutic Interventions Therapeutic Interventions Home Exercise Program,Manual Therapy,Neuromuscular Re- education,Self-Care/Home Management,Therapeutic Exercises Modalities Biofeedback Next Visit Focus/Plan Next Note Type Treatment Note Next Visit Plan continue with vaginal sensor and manual therapy work
--- NOTE | 2022-06-16 13:33 | PT.OTN ---
Current Diagnoses Full incontinence of feces (06/16/22) Unspecified urinary incontinence (06/16/22) Physical Therapy Treatment Note PT-OP-A Visit Information Start: 04/20/22 10:35 Freq: Status: Active Protocol: Document 06/16/22 12:50 [facility] (Rec: 06/16/22 13:31 [facility] [id number]) Out-Patient Physical Therapy Visit Information Visit Information Visit Type Treatment Note Visit Start Time 12:49 Visit Stop Time 13:30 Total Visit Minutes 41 Visit Number 5 PT-OP-B Current Condition Start: 04/20/22 10:35 Freq: Status: Active Protocol: Document 04/20/22 11:15 [facility] (Rec: 04/20/22 11:57 [facility] [id number]) Current Condition History of Current Condition Onset Date in this last year Current Complaints urinary leakage, History of Current Condition urinary leakage that suprises her and comes on all of a sudden, she has been practicing her kegels and is not sure she is doing it right . It helped a little bit at first but she is not sure now if is is helping Pt notes she can occasionally have bowelmovement that she can't hold She notes swelling in her feet and legs at night. SHe does put her feet up the wall x 10 min both morning and night. She has more good nights than bad nights. Her leakage can be just about any time, she wears 1 pad per day and by the end of the day it will be damp She had a cortisone injection in the left L5 last 6 months She took a fall 2 years ago tripping over a steel jose falling on her right side and it took her a year to fully feel back to her self Treatment Goals Patient/Caregiver Goals to eliminate urinary incontinence PT-OP-C Subjective Start: 04/20/22 10:35 Freq: Status: Active Protocol: Document 06/16/22 12:50 [facility] (Rec: 06/16/22 13:31 [facility] [id number]) OP-PT Subjective Patient Comments Patient Comments pt is using the coconut oil and has been stretching with the dilator the size small dilator is easy to insert now and she feels closer to using the perifit PT-OP-I Pelvic Floor Start: 04/20/22 10:35 Freq: Status: Active Protocol: Document 04/20/22 11:15 [facility] (Rec: 04/20/22 17:40 [facility] [id number]) Pelvic Floor Assessment Urine Pelvic Floor Surgery No Other Urinary Symptoms pt reports she will leak with certain movements and does not describe a urge to void. She states she never knows when it will happen and calls her leaks suprises Leakage Size Medium Leaks Per Day 3+ Voiding Frequency pt notes she doesn't void all that often but has been trying to void every Nocturia no Urine Pad Type Maxi Pad Pelvic Clock Pelvic Clock 6-9 Guarding Pelvic Clock 9-12 Guarding Pelvic Clock Other pt has guarding on the lateral rosen of the levator ani, it is difficult to relax the lateral rosen of the levator ani in between contractions Contraction Ability Voluntary Relaxation Weak Manual Muscle Testing Left 3 Manual Muscle Testing Right 3 Manual Muscle Testing Anterior 3 Manual Muscle Testing Posterior 3 Muscle Endurance (Seconds) 4 PT-OP-Q Treatments Start: 04/20/22 10:35 Freq: Status: Active Protocol: Document 06/16/22 12:50 [facility] (Rec: 06/16/22 13:31 [facility] [id number]) Therapeutic Exercises Supine Exercises quick pelvic floor contractions Reps/Minutes 24.8 supine pelvic floor ioslations Supine Exercise Name vaginal sensor day 2 , pt able to self insert Reps/Minutes 31.1 max contraction Manual Therapy Treatment Soft Tissue Mobilization pelvic floor manual therapy release Comments worked on releasing at the introitus today to help with relaxation of the tissue. Pt has palpable scar tissue and rugged edges too the vaginal introitus. She tolerated gentle manual therapy well. A size small dilator was then used and pt was instructed on home use of a dilator. PT-OP-T Assessment and Plan Start: 04/20/22 10:35 Freq: Status: Active Protocol: Document 06/16/22 12:50 [facility] (Rec: 06/16/22 13:31 [facility] [id number]) Physical Therapy Assessment Assessment Summary Assessment Bj is able to use the size small vaginal sensor today without assistance. I worked again on relaxing the pelvic floor and vaginal introitus with manual therapy first. She felt this was very helpful past treatment. The lashae fit was attempted and I was able to insert it 1/2 way in now. Pt will continue working on using the size small dilator for home Physical Therapy Plan Frequency and Duration Frequency of Treatment 1x/Week Duration of treatment (weeks) 12 Plan of Care Start Date 04/20/22 Plan of Care End Date 06/19/22 Therapeutic Interventions Therapeutic Interventions Home Exercise Program,Manual Therapy,Neuromuscular Re- education,Self-Care/Home Management,Therapeutic Exercises Modalities Biofeedback Next Visit Focus/Plan Next Note Type Treatment Note Next Visit Plan continue working on progressing to BJ being able to insert the perifit so that she is able to use her home EMG biofeedback unit
--- NOTE | 2022-06-30 14:03 | PT.OTN ---
Current Diagnoses Full incontinence of feces (06/30/22) Unspecified urinary incontinence (06/30/22) Physical Therapy Treatment Note PT-OP-A Visit Information Start: 04/20/22 10:35 Freq: Status: Active Protocol: Document 06/30/22 12:55 [facility] (Rec: 06/30/22 13:37 [facility] [id number]) Out-Patient Physical Therapy Visit Information Visit Information Visit Type Treatment Note Visit Start Time 12:55 Visit Stop Time 13:40 Total Visit Minutes 45 Visit Number 6 PT-OP-B Current Condition Start: 04/20/22 10:35 Freq: Status: Active Protocol: Document 04/20/22 11:15 [facility] (Rec: 04/20/22 11:57 [facility] [id number]) Current Condition History of Current Condition Onset Date in this last year Current Complaints urinary leakage, History of Current Condition urinary leakage that suprises her and comes on all of a sudden, she has been practicing her kegels and is not sure she is doing it right . It helped a little bit at first but she is not sure now if is is helping Pt notes she can occasionally have bowelmovement that she can't hold She notes swelling in her feet and legs at night. SHe does put her feet up the wall x 10 min both morning and night. She has more good nights than bad nights. Her leakage can be just about any time, she wears 1 pad per day and by the end of the day it will be damp She had a cortisone injection in the left L5 last 6 months She took a fall 2 years ago tripping over a steel jose falling on her right side and it took her a year to fully feel back to her self Treatment Goals Patient/Caregiver Goals to eliminate urinary incontinence PT-OP-C Subjective Start: 04/20/22 10:35 Freq: Status: Active Protocol: Document 06/30/22 12:55 [facility] (Rec: 06/30/22 13:37 [facility] [id number]) OP-PT Subjective Patient Comments Patient Comments pt notes she was able to get the lashae fit in by working with the dilators and using coconut oil this past week. Patient Reported Progress Improving PT-OP-I Pelvic Floor Start: 04/20/22 10:35 Freq: Status: Active Protocol: Document 04/20/22 11:15 [facility] (Rec: 04/20/22 17:40 [facility] [id number]) Pelvic Floor Assessment Urine Pelvic Floor Surgery No Other Urinary Symptoms pt reports she will leak with certain movements and does not describe a urge to void. She states she never knows when it will happen and calls her leaks suprises Leakage Size Medium Leaks Per Day 3+ Voiding Frequency pt notes she doesn't void all that often but has been trying to void every Nocturia no Urine Pad Type Maxi Pad Pelvic Clock Pelvic Clock 6-9 Guarding Pelvic Clock 9-12 Guarding Pelvic Clock Other pt has guarding on the lateral rosen of the levator ani, it is difficult to relax the lateral rosen of the levator ani in between contractions Contraction Ability Voluntary Relaxation Weak Manual Muscle Testing Left 3 Manual Muscle Testing Right 3 Manual Muscle Testing Anterior 3 Manual Muscle Testing Posterior 3 Muscle Endurance (Seconds) 4 PT-OP-Q Treatments Start: 04/20/22 10:35 Freq: Status: Active Protocol: Document 06/30/22 12:55 [facility] (Rec: 06/30/22 13:54 [facility] [id number]) Therapeutic Exercises Supine Exercises pelvic floor isolations with the lashae fit Reps/Minutes x 15 min Manual Therapy Treatment Soft Tissue Mobilization pelvic floor manual therapy release Comments worked on releasing at the introitus today to help with relaxation of the tissue. Pt has palpable scar tissue and rugged edges too the vaginal introitus. She tolerated gentle manual therapy well. A size small dilator was then used and pt was instructed on home use of a dilator. Self-Care/Home Management Treatment Education Patient Education Home Exercise Program Other Education education on using the lashae fit cheryl and using the calibration and games for pelvic floor strengthening PT-OP-T Assessment and Plan Start: 04/20/22 10:35 Freq: Status: Active Protocol: Document 06/30/22 12:55 [facility] (Rec: 06/30/22 13:54 [facility] [id number]) Physical Therapy Assessment Goals 3 Impairment Guarding of the lateral rosen of the pelvic floor with decreased ability to fully relax the pelvic floor Short Term Goal (STG) BJ is educated on relaxed awareness of the pelvic floor and the importance of fully relaxing following a pelvic floor contraction As of 06/30/22 this is improving and BJ is doing much better with pelvic floor relaxation STG Duration 4 weeks Legal Billing Specialist Goal (LTG) BJ is able to relax to baseline on EMG biofeedback inbetween pelvic floor contractions GOAL MET LTG Duration 12 weeks 2 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 Short Term Goal (STG) ROEL is able to sustain a pelvic floor contraction x 10 seconds in supine utilizing EMG biofeedback Good progress STG Duration 5 weeks Legal Billing Specialist Goal (LTG) ROEL is able to sustain a pelvic floor contraction for 5-10 seconds in standing positions goal not yet attempted LTG Duration 12 weeks 1 Impairment ROEL has Complaints of urinary incontinence that happens by suprise with activity Short Term Goal (STG) Pt is educated on both triggers that may cause sudden urgency as well as bladder irritants and bladder diary Goal met STG Duration 4 weeks [facility] Goal (LTG) ROEL is better able to notice triggers that may cause leakage and with strenghening her pelvic floor reports a overall reduction in urinary leakage Some progress but still leaking a small amount with suprise leaks LTG Duration 12 weeks Assessment Summary Assessment ROEL is making steady progress with her tissue health. She has progressively been able to work up to the vaginal sensor and now is able to use the perifit home biofeedback. She has been able to start using this program for the past 4 days. ROEL would benefit from continued progression of PT and her visits will be reduced to every other week. Physical Therapy Plan Frequency and Duration Frequency of Treatment Every Other Week Duration of treatment (weeks) 12 Plan of Care Start Date 06/19/22 Plan of Care End Date 09/11/22 Therapeutic Interventions Therapeutic Interventions Home Exercise Program,Manual Therapy,Neuromuscular Re- education,Self-Care/Home Management,Therapeutic Exercises Modalities Biofeedback Next Visit Focus/Plan Next Note Type Treatment Note Next Visit Plan continue working with pelvic floor endurance and ability for ROEL to both contract as well as relax her pelvic floor with EMG biofeedback
--- NOTE | 2022-06-30 14:04 | PT.OPPOC ---
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) Unspecified urinary incontinence (06/30/22) Visit Care Team Role Provider Type Yamile Bauman PA-C Primary Care Provider Advanced Molasses Preparer Specialty: Medical Address: [address] [place] [address], [id number] Email: [email or web address] Manuel Manjarrez MD Family Provider Physician Specialty: Family Practice Address: [address] [place] [address], [address] Email: [email or web address] Maddie Gutierrez MD Attending Provider Physician Referring Provider Specialty: Gynecology FILM COLOR TESTER Obstetrics Address: [address] [place] [address], [address] Email: [email or web address] Plan Of Care PT-OP-T Assessment and Plan Start: 04/20/22 10:35 Freq: Status: Active Protocol: Document 06/30/22 12:55 [facility] (Rec: 06/30/22 13:54 [facility] [id number]) Physical Therapy Assessment Goals 3 Impairment Guarding of the lateral rosen of the pelvic floor with decreased ability to fully relax the pelvic floor Short Term Goal (STG) ROEL is educated on relaxed awareness of the pelvic floor and the importance of fully relaxing following a pelvic floor contraction As of 06/30/22 this is improving and ROEL is doing much better with pelvic floor relaxation STG Duration 4 weeks Refining Machine Operator Goal (LTG) BJ is able to relax to baseline on EMG biofeedback in between pelvic floor contractions GOAL MET LTG Duration 12 weeks 2 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 Short Term Goal (STG) ROEL is able to sustain a pelvic floor contraction x 10 seconds in supine utilizing EMG biofeedback Good progress STG Duration 5 weeks Assisted Goal (LTG) ROEL is able to sustain a pelvic floor contraction for 5-10 seconds in standing positions goal not yet attempted LTG Duration 12 weeks 1 Impairment ROEL has Complaints of urinary incontinence that happens by suprise with activity Short Term Goal (STG) Pt is educated on both triggers that may cause sudden urgency as well as bladder irritants and bladder diary Goal met STG Duration 4 weeks Refining Machine Operator Goal (LTG) ROEL is better able to notice triggers that may cause leakage and with strengthening her pelvic floor reports a overall reduction in urinary leakage Some progress but still leaking a small amount with surprise leaks LTG Duration 12 weeks Assessment Summary Assessment ROEL is making steady progress with her tissue health. She has progressively been able to work up to the vaginal sensor and now is able to use the [employer] home biofeedback. She has been able to start using this program for the past 4 days. ROEL would benefit from continued progression of PT and her visits will be reduced to every other week. Physical Therapy Plan Frequency and Duration Frequency of Treatment Every Other Week Duration of treatment (weeks) 12 Plan of Care Start Date 06/19/22 Plan of Care End Date 09/11/22 Therapeutic Interventions Therapeutic Interventions Home Exercise Program,Manual Therapy,Neuromuscular Re- education,Self-Care/Home Management,Therapeutic Exercises Modalities Biofeedback Next Visit Focus/Plan Next Note Type Treatment Note Next Visit Plan continue working with pelvic floor endurance and ability for ROEL to both contract as well as relax her pelvic floor with EMG biofeedback Plan of Care Dates Plan of Care Start Date 06/19/22 Plan of Care End Date 09/11/22 Electronically Signed by: Montserrat Warren, PT 06/30/22 6732 If you are in agreement with this Plan of Care, please return a signed and dated copy. I have reviewed this Plan of Care and certify that the skilled therapy services above are required to meet the patient?s needs. Physician Signature Date Printed Name and Credentials Clinical Instructor Signature Printed Name and Credentials
--- NOTE | 2022-07-07 11:17 | PT.OTN ---
Current Diagnoses Full incontinence of feces (07/07/22) Unspecified urinary incontinence (07/07/22) Physical Therapy Treatment Note PT-OP-A Visit Information Start: 04/20/22 10:35 Freq: Status: Active Protocol: Document 07/07/22 10:27 [facility] (Rec: 07/07/22 11:16 [facility] [id number]) Out-Patient Physical Therapy Visit Information Visit Information Visit Type Treatment Note Visit Start Time 10:30 Visit Stop Time 11:15 Total Visit Minutes 45 Visit Number 7 PT-OP-B Current Condition Start: 04/20/22 10:35 Freq: Status: Active Protocol: Document 04/20/22 11:15 [facility] (Rec: 04/20/22 11:57 [facility] [id number]) Current Condition History of Current Condition Onset Date in this last year Current Complaints urinary leakage, History of Current Condition urinary leakage that suprises her and comes on all of a sudden, she has been practicing her kegels and is not sure she is doing it right . It helped a little bit at first but she is not sure now if is is helping Pt notes she can occasionally have bowelmovement that she can't hold She notes swelling in her feet and legs at night. SHe does put her feet up the wall x 10 min both morning and night. She has more good nights than bad nights. Her leakage can be just about any time, she wears 1 pad per day and by the end of the day it will be damp She had a cortisone injection in the left L5 last 6 months She took a fall 2 years ago tripping over a steel jose falling on her right side and it took her a year to fully feel back to her self Treatment Goals Patient/Caregiver Goals to eliminate urinary incontinence PT-OP-C Subjective Start: 04/20/22 10:35 Freq: Status: Active Protocol: Document 07/07/22 10:27 [facility] (Rec: 07/07/22 11:16 [facility] [id number]) OP-PT Subjective Patient Comments Patient Comments pt has been using her lashae fit every day. She has been trying to do it in the am. Her symptoms are just a little bit now and then PT-OP-I Pelvic Floor Start: 04/20/22 10:35 Freq: Status: Active Protocol: Document 04/20/22 11:15 [facility] (Rec: 04/20/22 17:40 [facility] [id number]) Pelvic Floor Assessment Urine Pelvic Floor Surgery No Other Urinary Symptoms pt reports she will leak with certain movements and does not describe a urge to void. She states she never knows when it will happen and calls her leaks suprises Leakage Size Medium Leaks Per Day 3+ Voiding Frequency pt notes she doesn't void all that often but has been trying to void every Nocturia no Urine Pad Type Maxi Pad Pelvic Clock Pelvic Clock 6-9 Guarding Pelvic Clock 9-12 Guarding Pelvic Clock Other pt has guarding on the lateral rosen of the levator ani, it is difficult to relax the lateral rosen of the levator ani in between contractions Contraction Ability Voluntary Relaxation Weak Manual Muscle Testing Left 3 Manual Muscle Testing Right 3 Manual Muscle Testing Anterior 3 Manual Muscle Testing Posterior 3 Muscle Endurance (Seconds) 4 PT-OP-Q Treatments Start: 04/20/22 10:35 Freq: Status: Active Protocol: Document 07/07/22 10:27 [facility] (Rec: 07/07/22 11:16 [facility] [id number]) Therapeutic Exercises Supine Exercises piriformis stretch Reps/Minutes hold 1-2 min modified pelvic floor stretch Reps/Minutes hold 1-2 minutes. quick pelvic floor contractions Reps/Minutes 33.6 uv supine hip roll outs Reps/Minutes x 20 reps supine pelvic floor ioslations Reps/Minutes 17.8 average 33.7 max Sidelying Exercises clam shell Reps/Minutes 2 x 10 reps Neuro Re-Education Treatment Other Activities EMG biofeedback for the pelvic floor Comments Pt was able to use the vaginal sensor today for EMG biofeedback. HEr resting tone was at baseline today average pf 17.5 and max of 33. 7 PT-OP-T Assessment and Plan Start: 04/20/22 10:35 Freq: Status: Active Protocol: Document 07/07/22 10:27 [facility] (Rec: 07/07/22 11:16 [facility] [id number]) Physical Therapy Assessment Goals 3 Impairment Guarding of the lateral rosen of the pelvic floor with decreased ability to fully relax the pelvic floor Short Term Goal (STG) BJ is educated on relaxed awareness of the pelvic floor and the importance of fully relaxing following a pelvic floor contraction As of 06/30/22 this is improving and BJ is doing much better with pelvic floor relaxation STG Duration 4 weeks Prison Goal (LTG) BJ is able to relax to baseline on EMG biofeedback inbetween pelvic floor contractions GOAL MET LTG Duration 12 weeks 2 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 Short Term Goal (STG) ROEL is able to sustain a pelvic floor contraction x 10 seconds in supine utilizing EMG biofeedback Good progress STG Duration 5 weeks Prison Goal (LTG) ROEL is able to sustain a pelvic floor contraction for 5-10 seconds in standing positions goal not yet attempted LTG Duration 12 weeks 1 Impairment ROEL has Complaints of urinary incontinence that happens by suprise with activity Short Term Goal (STG) Pt is educated on both triggers that may cause sudden urgency as well as bladder irritants and bladder diary Goal met STG Duration 4 weeks Prison Goal (LTG) ROEL is better able to notice triggers that may cause leakage and with strenghening her pelvic floor reports a overall reduction in urinary leakage Some progress but still leaking a small amount with suprise leaks LTG Duration 12 weeks Assessment Summary Assessment Roel has made great strength gains overall and has been able to continue with her lashae fit at home. We reviewed bladder irritants today as she notes wine some times makes her feel not as strong then next day with her pelvic floor exercises. Physical Therapy Plan Frequency and Duration Frequency of Treatment Every Other Week Duration of treatment (weeks) 12 Plan of Care Start Date 06/19/22 Plan of Care End Date 09/11/22 Therapeutic Interventions Therapeutic Interventions Home Exercise Program,Manual Therapy,Neuromuscular Re- education,Self-Care/Home Management,Therapeutic Exercises Modalities Biofeedback Next Visit Focus/Plan Next Note Type Treatment Note Next Visit Plan review for one final recheck in the next 1-2 months
--- NOTE | 2022-09-01 13:55 | PT.OTN ---
Current Diagnoses Full incontinence of feces (09/01/22) Unspecified urinary incontinence (09/01/22) Physical Therapy Treatment Note PT-OP-A Visit Information Start: 04/20/22 10:35 Freq: Status: Active Protocol: Document 09/01/22 10:37 [facility] (Rec: 09/01/22 11:12 [facility] [id number]) Out-Patient Physical Therapy Visit Information Visit Information Visit Type Treatment Note Visit Start Time 10:35 Visit Stop Time 11:15 Total Visit Minutes 40 Visit Number 8 PT-OP-B Current Condition Start: 04/20/22 10:35 Freq: Status: Active Protocol: Document 04/20/22 11:15 [facility] (Rec: 04/20/22 11:57 [facility] [id number]) Current Condition History of Current Condition Onset Date in this last year Current Complaints urinary leakage, History of Current Condition urinary leakage that suprises her and comes on all of a sudden, she has been practicing her kegels and is not sure she is doing it right . It helped a little bit at first but she is not sure now if is is helping Pt notes she can occasionally have bowelmovement that she can't hold She notes swelling in her feet and legs at night. SHe does put her feet up the wall x 10 min both morning and night. She has more good nights than bad nights. Her leakage can be just about any time, she wears 1 pad per day and by the end of the day it will be damp She had a cortisone injection in the left L5 last 6 months She took a fall 2 years ago tripping over a steel jose falling on her right side and it took her a year to fully feel back to her self Treatment Goals Patient/Caregiver Goals to eliminate urinary incontinence PT-OP-C Subjective Start: 04/20/22 10:35 Freq: Status: Active Protocol: Document 09/01/22 10:37 [facility] (Rec: 09/01/22 11:12 [facility] [id number]) OP-PT Subjective Patient Comments Patient Comments pt notes she is able to control things better and better than she was initialy, it is harder for her to relax all the way, she isn't noticing the sudden leaks as much now. Patient Reported Progress Improving PT-OP-I Pelvic Floor Start: 04/20/22 10:35 Freq: Status: Active Protocol: Document 04/20/22 11:15 [facility] (Rec: 04/20/22 17:40 [facility] [id number]) Pelvic Floor Assessment Urine Pelvic Floor Surgery No Other Urinary Symptoms pt reports she will leak with certain movements and does not describe a urge to void. She states she never knows when it will happen and calls her leaks suprises Leakage Size Medium Leaks Per Day 3+ Voiding Frequency pt notes she doesn't void all that often but has been trying to void every Nocturia no Urine Pad Type Maxi Pad Pelvic Clock Pelvic Clock 6-9 Guarding Pelvic Clock 9-12 Guarding Pelvic Clock Other pt has guarding on the lateral rosen of the levator ani, it is difficult to relax the lateral rosen of the levator ani in between contractions Contraction Ability Voluntary Relaxation Weak Manual Muscle Testing Left 3 Manual Muscle Testing Right 3 Manual Muscle Testing Anterior 3 Manual Muscle Testing Posterior 3 Muscle Endurance (Seconds) 4 PT-OP-Q Treatments Start: 04/20/22 10:35 Freq: Status: Active Protocol: Document 09/01/22 10:37 [facility] (Rec: 09/01/22 11:12 [facility] [id number]) Therapeutic Exercises Supine Exercises piriformis stretch Reps/Minutes hold 1-2 min modified pelvic floor stretch Reps/Minutes hold 1-2 minutes. quick pelvic floor contractions Reps/Minutes 33.6 uv supine hip roll outs Reps/Minutes x 20 reps supine pelvic floor ioslations Reps/Minutes 16.4 and max 25.6 Sidelying Exercises clam shell Reps/Minutes 2 x 10 reps Self-Care/Home Management Treatment Education Patient Education Home Exercise Program Other Education review of all exercises with emphasis on pelvic floor stretches PT-OP-T Assessment and Plan Start: 04/20/22 10:35 Freq: Status: Active Protocol: Document 09/01/22 10:37 [facility] (Rec: 09/01/22 11:12 [facility] [id number]) Physical Therapy Assessment Goals 3 Impairment Guarding of the lateral rosen of the pelvic floor with decreased ability to fully relax the pelvic floor Short Term Goal (STG) BJ is educated on relaxed awareness of the pelvic floor and the importance of fully relaxing following a pelvic floor contraction GOAL MET STG Duration 4 weeks Intermediate Goal (LTG) BJ is able to relax to baseline on EMG biofeedback inbetween pelvic floor contractions GOAL MET LTG Duration 12 weeks 2 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 Short Term Goal (STG) BJ is able to sustain a pelvic floor contraction x 10 seconds in supine utilizing EMG biofeedback Go STG Duration 5 weeks Civil Engineering Professor Goal (LTG) ROEL is able to sustain a pelvic floor contraction for 5-10 seconds in standing positions goal not yet attempted LTG Duration 12 weeks 1 Impairment ROEL has Complaints of urinary incontinence that happens by suprise with activity Short Term Goal (STG) Pt is educated on both triggers that may cause sudden urgency as well as bladder irritants and bladder diary Goal met STG Duration 4 weeks Civil Engineering Professor Goal (LTG) ROEL is better able to notice triggers that may cause leakage and with strenghening her pelvic floor reports a overall reduction in urinary leakage Some progress but still leaking a small amount with suprise leaks LTG Duration 12 weeks Assessment Summary Assessment ROEL continues to work hard on her exercise program. She reports she is not leaking at this point. ROEL continues to use the lashae fit for home exercise. She does tend to hold her breath with exercises and we have been working on relaxed awareness of the pelvic foor as well as isolations without breath hold . ROEL is doing much better with decreased vaginal tissue tightness. She would like one final recheck after working on her own with the lashae fit. Physical Therapy Plan Frequency and Duration Frequency of Treatment one recheck Duration of treatment (weeks) 12 Plan of Care Start Date 09/01/22 Plan of Care End Date 11/24/22 Therapeutic Interventions Therapeutic Interventions Home Exercise Program,Manual Therapy,Neuromuscular Re- education,Self-Care/Home Management,Therapeutic Exercises Modalities Biofeedback Next Visit Focus/Plan Next Note Type Treatment Note Next Visit Plan pt requests one final check in as she likes to see how she is doing on EMG biofeedback, review all HEP next visit
--- NOTE | 2022-09-01 13:57 | PT.OPPOC ---
Physical, Occupational & Speech Therapy At [facility] Current Diagnoses Full incontinence of feces (09/01/22) Unspecified urinary incontinence (09/01/22) Visit Care Team Role Provider Type Yamile Bauman PA-C Primary Care Provider Advanced Scrap Crane Operator Specialty: Medical Address: [address] [place] [address], [address] Email: [email or web address] Manuel Manjarrez MD Family Provider Physician Specialty: Family Practice Address: [address] [place] [address], [address] Email: [email or web address] Maddie Gutierrez MD Attending Provider Physician Referring Provider Specialty: Gynecology GLASS EMBOSSER Obstetrics Address: [address] [place] [address], [address] Email: [email or web address] Plan Of Care PT-OP-T Assessment and Plan Start: 04/20/22 10:35 Freq: Status: Active Protocol: Document 09/01/22 10:37 [facility] (Rec: 09/01/22 11:12 [facility] [id number]) Physical Therapy Assessment Goals 3 Impairment Guarding of the lateral rosen of the pelvic floor with decreased ability to fully relax the pelvic floor Short Term Goal (STG) BJ is educated on relaxed awareness of the pelvic floor and the importance of fully relaxing following a pelvic floor contraction GOAL MET STG Duration 4 weeks Halfway Goal (LTG) BJ is able to relax to baseline on EMG biofeedback inbetween pelvic floor contractions GOAL MET LTG Duration 12 weeks 2 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 Short Term Goal (STG) BJ is able to sustain a pelvic floor contraction x 10 seconds in supine utilizing EMG biofeedback Goal met STG Duration 5 weeks Halfway Goal (LTG) BJ is able to sustain a pelvic floor contraction for 5-10 seconds in standing positions goal not yet met LTG Duration 12 weeks 1 Impairment BJ has Complaints of urinary incontinence that happens by suprise with activity Short Term Goal (STG) Pt is educated on both triggers that may cause sudden urgency as well as bladder irritants and bladder diary Goal met STG Duration 4 weeks Early Childhood Educator Aide Goal (LTG) ROEL is better able to notice triggers that may cause leakage and with strenghening her pelvic floor reports a overall reduction in urinary leakage pt reports overall she is no longer leaking. LTG Duration 12 weeks Assessment Summary Assessment ROEL continues to work hard on her exercise program. She reports she is not leaking at this point. ROEL continues to use the lashae fit for home exercise. She does tend to hold her breath with exercises and we have been working on relaxed awareness of the pelvic foor as well as isolations without breath hold . ROEL is doing much better with decreased vaginal tissue tightness. She would like one final recheck after working on her own with the lashae fit. Physical Therapy Plan Frequency and Duration Frequency of Treatment one recheck Duration of treatment (weeks) 12 Plan of Care Start Date 09/01/22 Plan of Care End Date 11/24/22 Therapeutic Interventions Therapeutic Interventions Home Exercise Program,Manual Therapy,Neuromuscular Re- education,Self-Care/Home Management,Therapeutic Exercises Modalities Biofeedback Next Visit Focus/Plan Next Note Type Treatment Note Next Visit Plan pt requests one final check in as she likes to see how she is doing on EMG biofeedback, review all HEP next visit Plan of Care Dates Plan of Care Start Date 09/01/22 Plan of Care End Date 11/24/22 Electronically Signed by: Montserrat Warren, PT 09/01/22 [id number] If you are in agreement with this Plan of Care, please return a signed and dated copy. I have reviewed this Plan of Care and certify that the skilled therapy services above are required to meet the patient?s needs. Physician Signature Date Printed Name and Credentials Clinical Instructor Signature Printed Name and Credentials
--- NOTE | 2022-11-18 10:28 | PT.OPDS ---
Current Diagnoses Full incontinence of feces (11/18/22) Unspecified urinary incontinence (11/18/22) Visit Care Team Role Provider Type Yamile Bauman PA-C Primary Care Provider Advanced Leather Patcher Specialty: Medical Address: [address] [place] [address], [id number] Email: [email or web address] Manuel Manjarrez MD Family Provider Non-Staff Specialty: Family Practice Address: [address] [place] [address], [address] Email: [email or web address] Maddie Gutierrez MD Attending Provider Physician Referring Provider Specialty: Gynecology MEDICAL CARE MANAGER Obstetrics Address: [address] [place] [address], [address] Email: [email or web address] Visit Number Visit Number 9 Discharge Summary PT-OP-B Current Condition Start: 04/20/22 10:35 Freq: Status: Active Protocol: Document 04/20/22 11:15 [facility] (Rec: 04/20/22 11:57 [facility] [id number]) Current Condition History of Current Condition Onset Date in this last year Current Complaints urinary leakage, History of Current Condition urinary leakage that suprises her and comes on all of a sudden, she has been practicing her kegels and is not sure she is doing it right . It helped a little bit at first but she is not sure now if is is helping Pt notes she can occasionally have bowelmovement that she can't hold She notes swelling in her feet and legs at night. SHe does put her feet up the wall x 10 min both morning and night. She has more good nights than bad nights. Her leakage can be just about any time, she wears 1 pad per day and by the end of the day it will be damp She had a cortisone injection in the left L5 last 6 months She took a fall 2 years ago tripping over a steel jose falling on her right side and it took her a year to fully feel back to her self Treatment Goals Patient/Caregiver Goals to eliminate urinary incontinence PT-OP-C Subjective Start: 04/20/22 10:35 Freq: Status: Active Protocol: Document 11/18/22 09:32 [facility] (Rec: 11/18/22 09:45 [facility] [id number]) OP-PT Subjective Patient Comments Patient Comments pt notes she still has the leakage but it isn't as bad as it was a year ago, she will get little drips at times without warning. PT-OP-I Pelvic Floor Start: 04/20/22 10:35 Freq: Status: Active Protocol: Document 11/18/22 09:45 [facility] (Rec: 11/18/22 10:01 [facility] [id number]) Pelvic Floor Assessment Pelvic Clock Pelvic Clock Other pt is no longer guarded and is able to relax her pelvic floor inbetween contractions SEMG (uV) Baseline 0 10 Second Contraction 15 Recruitment Pattern Good Relaxation Good Holding Good Stability of Hold Good SEMG Stability of Rest Good PT-OP-T Assessment and Plan Start: 04/20/22 10:35 Freq: Status: Active Protocol: Document 11/18/22 10:21 [facility] (Rec: 11/18/22 10:25 [facility] [id number]) Physical Therapy Assessment Goals 3 Impairment Guarding of the lateral rosen of the pelvic floor with decreased ability to fully relax the pelvic floor Short Term Goal (STG) ROEL is educated on relaxed awareness of the pelvic floor and the importance of fully relaxing following a pelvic floor contraction GOAL MET STG Duration 4 weeks Wood Model Maker Goal (LTG) ROEL is able to relax to baseline on EMG biofeedback inbetween pelvic floor contractions GOAL MET LTG Duration 12 weeks 2 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 Short Term Goal (STG) ROEL is able to sustain a pelvic floor contraction x 10 seconds in supine utilizing EMG biofeedback Goal met STG Duration 5 weeks Fdc Goal (LTG) ROEL is able to sustain a pelvic floor contraction for 5-10 seconds in standing positions BJ has been working on this LTG Duration 12 weeks 1 Impairment ROEL has Complaints of urinary incontinence that happens by suprise with activity Short Term Goal (STG) Pt is educated on both triggers that may cause sudden urgency as well as bladder irritants and bladder diary Goal met STG Duration 4 weeks Wood Model Maker Goal (LTG) ROEL is better able to notice triggers that may cause leakage and with strenghening her pelvic floor reports a overall reduction in urinary leakage pt reports overall she is no longer leaking. Just a few drops here and there but better overall LTG Duration 12 weeks Assessment Summary Assessment overall ROEL is doing much better with both her ability to sustain a contraction as well as pelvic floor relaxation at rest. She has the lashae fit for home use for her HEP. At this point she still notes a few drops of urine that leaks. Overall she notes she is much better but the few drops still bother her . I talked to her about HRT options but at this time she is not wanting HRT due to hx of breast cancer. I also talked to her about stem cell injection for the vaginal rosen as well. She will be DC at this time to a I HEP Physical Therapy Plan Discharge Physical Therapy Discharge Reasons Goals Met Discharge Comments DC PT to a I HEP
== END 2022-12-13 14:15 | disposition home or self-care (01) ==
LOC: PHYS 09:30
PROVIDERS: Family Provider Family Medicine; PCP Physician Assistant; Referring Provider Obstetrics & Gynecology; Visit Provider Obstetrics & Gynecology
DX: R32 Unspecified urinary incontinence (principal); R15.9 Full incontinence of feces
CPT/HCPCS: 97110; 97112; 97140; 97161; 97164; 97535

== ENCOUNTER → 2022-11-24 09:02 | Outpatient (CLI) | payer MEDICARE, OTHER, SELFPAY ==
[2022-11-24 19:53] LABS: BUN Creatinine Ratio 22.9 (6-22); Blood Urea Nitrogen 19 mg/dL (7-17); Cholesterol 156 mg/dL (140-199); Estimated Glomerular Filt Rate > 60 mL/min (>60); HDL Cholesterol 62 mg/dL (40-60); LDL Cholesterol Calculated 79 mg/dL (<100); Triglycerides 77 mg/dL (35-150)
== END ==
PROVIDERS: Family Provider Family Medicine; PCP Physician Assistant; Visit Provider Family Medicine
DX: I63.9 Cerebral infarction, unspecified (principal); E78.2 Mixed hyperlipidemia; E87.1 Hypo-osmolality and hyponatremia; I10 Essential (primary) hypertension
CPT/HCPCS: 80061; 82565; 84520

== ENCOUNTER → 2023-03-17 10:22 | Outpatient (CLI) | payer MEDICARE, OTHER, SELFPAY | PROVIDERS: PCP Family Medicine; Visit Provider Physician Assistant Medical | DX: J02.9 Acute pharyngitis, unspecified (principal) | CPT/HCPCS: 87070 ==

== ENCOUNTER → 2023-08-18 08:14 | Outpatient (CLI) | payer MEDICARE, OTHER, SELFPAY ==
[2023-08-18 10:08] LABS: Add Manual Diff / Slide Review NO; Basophils Absolute Auto 100 /uL (0-100); Eosinophils Absolute Auto 200 /uL (0-450); Eosinophils Percent Auto 3.5 % (2-4); Hematocrit 36.9 % (36-46); Hemoglobin 12.2 g/dL (12.0-16.0); Lymphocytes Absolute Auto 1600 /uL (1100-4500); Lymphocytes Percent Auto 24.2 % (25-40); Mean Corpuscular HGB Conc 33.2 % (30-36); Mean Corpuscular Hemoglobin 29.9 PG (26-34); Mean Corpuscular Volume 90.1 fL (80-100); Monocytes Absolute Auto 800 /uL (0-900); Monocytes Percent Auto 12.1 % (3-14); Neutrophils Absolute Auto 4000 /uL (1500-7000); Neutrophils Percent Auto 59.2 % (50-75); Platelet Count 298 X10^3/uL (150-400); Red Blood Cell Count 4.09 X10^6/uL (4.0-5.2); Red Cell Distribution Width 14.1 % (11.6-14.8); White Blood Cell Count 6.7 X10^3/uL (4.5-11.0)
[2023-08-18 12:37] LABS: Alanine Aminotransferase 23 IU/L (<35); Albumin 4.2 g/dL (3.5-5.0); Albumin Globulin Ratio 1.8 (1.0-2.8); Alkaline Phosphatase 63 U/L (38-126); Aspartate Aminotransferase 33 IU/L (14-36); BUN Creatinine Ratio 27.2 (6-22); Bilirubin Total 0.4 mg/dL (0.2-1.3); Blood Urea Nitrogen 22 mg/dL (7-17); Calcium 9.4 mg/dL (8.4-10.2); Carbon Dioxide 28 mmol/L (22-32); Chloride 109 mmol/L (98-107); Cholesterol 145 mg/dL (140-199); Estimated Glomerular Filt Rate > 60 mL/min (>60); Globulin 2.4 g/dL (1.7-4.1); Glucose 78 mg/dL (80-110); HDL Cholesterol 61 mg/dL (40-60); HEMOLYSIS < 15 (0-50); LDL Cholesterol Calculated 74 mg/dL (<100); Potassium 4.2 mmol/L (3.4-5.1); Sodium 140 mmol/L (137-145); Total Protein 6.6 g/dL (6.3-8.2); Triglycerides 49 mg/dL (35-150)
[2023-08-18 13:31] LABS: TSH w/ Reflex to FT4 1.88 uIU/mL (0.47-4.68)
== END ==
PROVIDERS: PCP Family Medicine; Referring Provider Family Medicine; Visit Provider Family Medicine
DX: E78.2 Mixed hyperlipidemia (principal); E87.1 Hypo-osmolality and hyponatremia; I10 Essential (primary) hypertension; G62.9 Polyneuropathy, unspecified
CPT/HCPCS: 36415; 80053; 80061; 84443; 85025

== ENCOUNTER → 2024-02-09 12:14 | Outpatient (CLI) | payer MEDICARE, OTHER, SELFPAY ==
--- NOTE | 2024-02-09 12:16 | DI.RAD.S_ITS ---
PROCEDURE: XR DEXA AXIAL SKELETON INDICATIONS: PRESYNCOPE,HX CVA,OSTEOPENIA,ROUTINE SCREENING COMPARISON: [facility], CR, XR DEXA AXIAL SKELETON, 01/05/2022, 9:55. FINDINGS: Lumbar Spine: Bone mineral density 1.037 g/cm2, T score -0.1. There is interval 0.2% decrease in total lumbar spine bone mineral density. Left Hip: Bone mineral density 0.736 g/cm2, T score -1.7. There is interval 1.8% decrease in left total hip bone mineral density. Left Femoral Neck: Bone mineral density 0.537 g/cm2, T score -2.8. There is interval 25% decrease in left femoral neck bone mineral density. Right Hip: Bone mineral density 0.748 g/cm2, T score -1.6, there is interval 1.8% decrease in right hip bone mineral density. Right Femoral Neck: Bone mineral density 0.701 g/cm2, T score -1.3. There is interval 1.5% decrease in right femoral neck bone mineral density. Fracture Risk Calculation (when applicable): 10-year fracture risk of a major osteoporotic fracture 19% and of a hip fracture 7.4%. (T score greater or equal to -1.0 to: NORMAL) (T score from -1.1 to -2.4: OSTEOPENIA) (T score less than or equal to -2.5: OSTEOPOROSIS) IMPRESSION: Osteoporosis. Follow-up guidelines as follows: Osteoporosis: Consider a repeat DEXA and Vertebral Fracture Assessment (VFA) exam in 2 years or sooner if medically necessary, to reassess this patient's status. Osteopenia: Consider a repeat DEXA in 2-3 years to reassess this patient's status, or if there is a new clinical indication. Normal: Consider a repeat DEXA in 5 years or sooner, or if there is a new clinical indication. All treatment decisions require clinical judgment and consideration of individual patient factors, including patient preferences, comorbidities, previous drug use, risk factors not captured in the FRAX model (e.g., frailty, falls, vitamin D deficiency, increased bone turnover, interval significant decline in bone density ) and possible under- or over-estimation of fracture risk by FRAX. In addition, the NOF Guide recommends that FDA-approved medical therapies be considered in postmenopausal women and men age >= 50 years with a: * Hip or vertebral (clinical or morphometric) fracture * T-score of <=-2.5 at the spine or hip * Ten-year fracture probability by FRAX of >= 3% for hip fracture or >=20% for major osteoporotic fracture. People with diagnosed cases of osteoporosis or at high risk for fracture should have regular bone mineral density tests. For patients eligible for Medicare, routine testing is allowed once every 2 years. The testing frequency can be increased to one year for patients who have rapidly progressing disease, those who are receiving or discontinuing medical therapy to restore bone mass, or have additional risk factors. Dictated by: Satish Woodward M.D. on 02/09/2024 at 13:38 Approved by: Satish Woodward M.D. on 02/09/2024 at 13:48
--- NOTE | 2024-02-09 12:16 | DI.US.S_ITS ---
PROCEDURE: US CAROTID DOPPLER BI INDICATIONS: presyncope, history of CVA TECHNIQUE: Color and pulse Doppler interrogation was performed of both carotid systems, with image documentation and velocity measurements. COMPARISON: [facility], , CAROTID ARTERY DOPPLER BIL, 02/28/2015, 8:16. FINDINGS: Stenosis calculations are based on SRU (Society of Radiologists in Ultrasound) criteria. The flow velocities and the arterial waveforms are normal within both carotid arterial systems. Atherosclerotic plaque is seen on both sides. The estimated degree of internal carotid artery stenosis is less than 50%. Antegrade flow is confirmed within both vertebral arteries. However, there is an irregular waveform seen involving the right vertebral artery. The visualized proximal right subclavian artery is widely patent. IMPRESSION: No hemodynamically significant stenosis is seen. Atherosclerotic plaque is noted bilaterally. Irregular waveform seen of the right internal carotid artery. This can be seen in patients with early subclavian steal. However, the right proximal subclavian artery appears widely patent these images. Dictated by: Franki Castro M.D. on 02/09/2024 at 13:14 Approved by: Franki Castro M.D. on 02/09/2024 at 13:17
--- NOTE | 2024-02-09 12:18 | DI.MG.S_ITS ---
UNILATERAL LEFT DIGITAL SCREENING MAMMOGRAM 3D/2D WITH CAD: 02/09/2024 CLINICAL: Routine screening. Personal history of bilateral breast cancer. Comparison is made to exams dated: 01/12/2023 mammogram, 01/05/2022 mammogram, and 11/29/2019 mammogram - [facility]. The breasts are extremely dense, which lowers the sensitivity of mammography (category d />75% glandular tissue). Current study was also evaluated with a Computer Aided Detection (CAD) system. There are benign post operative findings in the left breast. No significant masses, calcifications, or other findings are seen in the breast. There has been no significant interval change. IMPRESSION: BENIGN There is no mammographic evidence of malignancy. A 1 year screening mammogram is recommended. This exam was interpreted at Station ID: [id number]. NOTE: For mammograms, a report in lay terms will be sent to the patient. Approximately 15% of breast malignancies will not be visualized mammographically. In the management of a palpable breast mass, a negative mammogram must not discourage biopsy of a clinically suspicious lesion. Electronically Signed By: Bola resendez/uri:02/10/2024 13:43:38 letter sent: Normal Exam ACR BI-RADS Category 2: Benign
== END ==
PROVIDERS: Family Provider Family Medicine; PCP Family Medicine; Referring Provider Family Medicine; Visit Provider Family Medicine
DX: I65.23 Occlusion and stenosis of bilateral carotid arteries (principal); Z12.31 Encounter for screening mammogram for malignant neoplasm of breast; I69.30 Unspecified sequelae of cerebral infarction; R92.343 Mammographic extreme density, bilateral breasts; Z85.3 Personal history of malignant neoplasm of breast; R55 Syncope and collapse; M81.0 Age-related osteoporosis without current pathological fracture; Z78.0 Asymptomatic menopausal state
CPT/HCPCS: 77063; 77067; 77080; 93880

== ENCOUNTER 2024-02-15 09:22 | Outpatient (RCR) | payer MEDICARE, OTHER, SELFPAY ==
--- NOTE | 2024-02-15 12:58 | PT.OIE ---
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 Maddie Gutierrez MD Attending Provider Physician Referring Provider Specialty: Gynecology FOUNDATION DRILL OPERATOR HELPER Obstetrics Address: [address] [place] [address], [phone] Email: [email or web address] Physical Therapy Initial Evaluation PT-OP-A Visit Information Start: 02/15/24 09:53 Freq: Status: Active Protocol: Document 02/15/24 09:45 [facility] (Rec: 02/15/24 10:39 [facility] [id number]) Out-Patient Physical Therapy Visit Information Visit Information Visit Type Initial Evaluation Visit Start Time 09:45 Visit Stop Time 10:30 Visit Number 1 Evaluation Information Evaluation Date 02/15/24 PT-OP-B Current Condition Start: 02/15/24 09:53 Freq: Status: Active Protocol: Document 02/15/24 09:45 [facility] (Rec: 02/15/24 10:03 [facility] [id number]) Current Condition History of Current Condition Current Complaints pt reports she has been working on her pelvic floor with the lashae fit but f History of Current Condition she notes urgency and surprise leakage She was given a medication for bladder urgency a couple of weeks ago, and then will recheck in a couple of months. PT-OP-I Pelvic Floor Start: 02/15/24 10:18 Freq: Status: Active Protocol: Document 02/15/24 09:45 [facility] (Rec: 02/15/24 10:27 [facility] [id number]) Pelvic Floor Assessment Urine Urinary Symptoms Urge Sensation Other Urinary Symptoms sudden urinary leakage without warning Leakage Size Large Other Leakage Causes leakage can come on suddenly or with light activity during the day Leaks Per Day 1-3 leaks per day Voiding Frequency every 2.5-3 hours Nocturia 1 Urine Pad Type Panty Liner Pelvic Clock Pelvic Clock Other good muscle tone of the pelvic floor the tissue around the urethra is thin SEMG (uV) Baseline 0 10 Second Contraction 17 Contraction Ability Voluntary Contraction Moderate Voluntary Relaxation Moderate Manual Muscle Testing Left 5 Manual Muscle Testing Right 5 Manual Muscle Testing Anterior 5 Manual Muscle Testing Posterior 5 Muscle Endurance (Seconds) 10 Comments Pelvic Floor Comments 17 uv average and max of 30 uv , good ability to relax at baseline and in between contractions. Overall very good strength of the levator ani musculature PT-OP-Q Treatments Start: 02/15/24 10:18 Freq: Status: Active Protocol: Document 02/15/24 09:45 [facility] (Rec: 02/15/24 10:41 [facility] [id number]) Self-Care/Home Management Treatment Education Other Education discussion on bulkamid verses botox for the bladder spasms and sudden loss of urine PT-OP-T Assessment and Plan Start: 02/15/24 10:18 Freq: Status: Active Protocol: Document 02/15/24 09:45 [facility] (Rec: 02/15/24 12:44 [facility] [id number]) Physical Therapy Assessment Rehab Potential Rehabilitation Potential Excellent Evaluation Complexity Number of Personal Factors/Comorbidities 0 Number of Body Systems Impaired 1-2 Clinical Presentation at Evaluation Stable Impairments Other Impairments urinary incontinence Goals 1 Impairment Miracle seeks consult to measure pelvic floor strength and endurance Short Term Goal (STG) With exam ROEL demonstrates excellent ability to both contract the pelvic floor as well as sustain a pelvic floor contraction for 10 seconds. She is able to fully relax her pelvic floor in between contractions STG Duration 1 day Assessment Summary Assessment Miracle (ROEL) returns to PT today after working on her own for a year with her pelvic floor strengthening using a lashae fit home biofeedback unit. She reports feeling strong in her pelvic floor muscles and despite her work on strengthening she continues to have unexplained leakage throughout the day. She reports she will experience that comes on all of a sudden and without urgency or a warning. She notes 1-3 episodes per day of this suprise leakage. She is wearing panty liners for protection. She is seeking a pelvic floor exam to let her know how she is strength ball and she is seeking consult from urology as to other forms of treatment such a botox. ROEL is voiding approximately every 2.5-3 hours during the day and is waking 1 time per night to void. With examination today ROEL is doing very well with pelvic floor strength and endurance. She is able to contract all rosen of the levator ani with a strong contraction and has the ability to sustain a pelvic floor contraction for 10 seconds. I did go through 10 reps of pelvic floor 10 second holds with her on EMG biofeedback today to compare where she was when I saw her in 2022. She is stronger at this point and is able to fully relax to baseline quickly in between contractions . This was more difficulty for her to do in 2022. At this point I don't feel her pelvic floor is contributing to her leakage. I did palpate at the urethra and the tissue does feel thin to me. I wonder if ROEL would be a candidate for bulkamid or of botox into the bladder would be helpful for her with the sudden leakage. She is seeking out guidance from urology. At this point I do not feel ROEL needs further PT and she will continue on her home pelvic floor program using her lashae fit. Physical Therapy Plan Discharge Physical Therapy Discharge Comments Pt was seen for pelvic floor consult only today, no further PT visits needed
--- NOTE | 2024-02-15 13:01 | PT.OPDS ---
Current Diagnoses Other specified disorders of muscle (02/15/24) Stress incontinence (female) (male) (02/15/24) Mixed incontinence (02/15/24) Visit Care Team Role Provider Type Yanely Mejía MD Family Provider Physician Primary Care Provider Specialty: Family Practice Address: [address] [place] [address], [phone] Email: [email or web address] Maddie Gutierrez MD Attending Provider Physician Referring Provider Specialty: Gynecology PHOTO MASK INSPECTOR Obstetrics Address: [address] [place] [address], [address] Email: [email or web address] Visit Number Visit Number 1 Discharge Summary PT-OP-B Current Condition Start: 02/15/24 09:53 Freq: Status: Active Protocol: Document 02/15/24 09:45 [facility] (Rec: 02/15/24 10:03 [facility] [id number]) Current Condition History of Current Condition Current Complaints pt reports she has been working on her pelvic floor with the lashae fit but f History of Current Condition she notes urgency and suprise leakage She was given a medication for bladder urgency a couple of weeks ago, and then will recheck in a couple of months. PT-OP-I Pelvic Floor Start: 02/15/24 10:18 Freq: Status: Active Protocol: Document 02/15/24 09:45 [facility] (Rec: 02/15/24 10:27 [facility] [id number]) Pelvic Floor Assessment Urine Urinary Symptoms Urge Sensation Other Urinary Symptoms sudden urinary leakage without warning Leakage Size Large Other Leakage Causes leakage can come on suddenly or with light activity during the day Leaks Per Day 1-3 leaks per day Voiding Frequency every 2.5-3 hours Nocturia 1 Urine Pad Type Panty Liner Pelvic Clock Pelvic Clock Other good muscle tone of the pelvic floor the tissue around the urethra is thin SEMG (uV) Baseline 0 10 Second Contraction 17 Contraction Ability Voluntary Contraction Moderate Voluntary Relaxation Moderate Manual Muscle Testing Left 5 Manual Muscle Testing Right 5 Manual Muscle Testing Anterior 5 Manual Muscle Testing Posterior 5 Muscle Endurance (Seconds) 10 Comments Pelvic Floor Comments 17 uv average and max of 30 uv , good ability to relax at baseline and in between contractions. Overall very good strength of the levator ani musculature PT-OP-T Assessment and Plan Start: 02/15/24 10:18 Freq: Status: Active Protocol: Document 02/15/24 09:45 [facility] (Rec: 02/15/24 12:44 [facility] [id number]) Physical Therapy Assessment Rehab Potential Rehabilitation Potential Excellent Evaluation Complexity Number of Personal Factors/Comorbidities 0 Number of Body Systems Impaired 1-2 Clinical Presentation at Evaluation Stable Impairments Other Impairments urinary incontinence Goals 1 Impairment Miracle seeks consult to measure pelvic floor strength and endurance Short Term Goal (STG) With exam ROEL demonstrates excellent ability to both contract the pelvic floor as well as sustain a pelvic floor contraction for 10 seconds. She is able to fully relax her pelvic floor in between contractions STG Duration 1 day Assessment Summary Assessment Miracle HAM) returns to PT today after working on her own for a year with her pelvic floor strengthening using a lashae fit home biofeedback unit. She reports feeling strong in her pelvic floor muscles and despite her work on strengthening she continues to have unexplained leakage throughout the day. She reports she will experience that comes on all of a sudden and without urgency or a warning. She notes 1-3 episodes per day of this surprise leakage. She is wearing panty liners for protection. She is seeking a pelvic floor exam to let her know how she is strength ball and she is seeking consult from urology as to other forms of treatment such a botox. ROEL is voiding approximately every 2.5-3 hours during the day and is waking 1 time per night to void. With examination today ROEL is doing very well with pelvic floor strength and endurance. She is able to contract all rosen of the levator ani with a strong contraction and has the ability to sustain a pelvic floor contraction for 10 seconds. I did go through 10 reps of pelvic floor 10 second holds with her on EMG biofeedback today to compare where she was when I saw her in 2022. She is stronger at this point and is able to fully relax to baseline quickly in between contractions . This was more difficulty for her to do in 2022. At this point I don't feel her pelvic floor is contributing to her leakage. I did palpate at the urethra and the tissue does feel thin to me. I wonder if ROEL would be a candidate for bulkamid or of botox into the bladder would be helpful for her with the sudden leakage. She is seeking out guidance from urology. At this point I do not feel BJ needs further PT and she will continue on her home pelvic floor program using her lashae fit. Physical Therapy Plan Discharge Physical Therapy Discharge Comments Pt was seen for pelvic floor consult only today, no further PT visits needed
== END 2024-02-15 15:01 | disposition home or self-care (01) ==
LOC: PHYS 09:22
PROVIDERS: Family Provider Family Medicine; PCP Family Medicine; Referring Provider Obstetrics & Gynecology; Visit Provider Obstetrics & Gynecology
DX: N39.46 Mixed incontinence (principal); M62.89 Other specified disorders of muscle
CPT/HCPCS: 97161

== ENCOUNTER → 2024-02-28 16:38 | Outpatient (CLI) | payer MEDICARE, OTHER, SELFPAY ==
[2024-02-28 17:20] LABS: Influenza A - CEPHEID Flu A NEGATIVE (NEGATIVE); Influenza B - CEPHEID Flu B NEGATIVE (NEGATIVE); Respiratory Syncytial Virus Negative (Negative)
[2024-02-28 17:25] LABS: COVID-19 CEPHEID 4-PLEX PCR Negative (Negative)
== END ==
PROVIDERS: Family Provider Family Medicine; PCP Family Medicine; Visit Provider Physician Assistant Surgical
DX: R05.1 Acute cough (principal)
CPT/HCPCS: 0241U

== ENCOUNTER → 2024-02-28 17:02 | Outpatient (CLI) | payer MEDICARE, OTHER, SELFPAY ==
--- NOTE | 2024-02-28 17:05 | DI.RAD.S_ITS ---
PROCEDURE: XR CHEST 2V INDICATIONS: Cough, SOB, crackles TECHNIQUE: 2 views of the chest were acquired. COMPARISON: [facility], CR, XR CHEST 2V, 06/25/2020, 10:34. FINDINGS: Surgical changes and devices: Bilateral lump tectum ease and bilateral axillary node resections. Lungs and pleura: Interstitial pulmonary edema. No pleural effusions or pneumothorax. Mediastinum: Mediastinal contours are normal. Heart size is normal. Bones and chest wall: No suspicious bony abnormalities. Soft tissues appear unremarkable. IMPRESSION: Interstitial pulmonary edema. Dictated by: Paul Buchanan M.D. on 02/28/2024 at 18:19 Approved by: Paul Buchanan M.D. on 02/28/2024 at 18:20
== END ==
PROVIDERS: Family Provider Family Medicine; PCP Family Medicine; Referring Provider Student in an Organized Health Care Education/Training Program; Visit Provider Student in an Organized Health Care Education/Training Program
DX: J81.1 Chronic pulmonary edema (principal); R06.02 Shortness of breath; R05.1 Acute cough
CPT/HCPCS: 0241U; 71046

== ENCOUNTER → 2024-02-29 16:38 | Outpatient (CLI) | payer MEDICARE, OTHER, SELFPAY ==
[2024-02-29 17:51] LABS: Add Manual Diff / Slide Review NO; Basophils Absolute Auto 100 /uL (0-100); Eosinophils Absolute Auto 500 /uL (0-450); Eosinophils Percent Auto 5.8 % (2-4); Hematocrit 39.7 % (36-46); Hemoglobin 13.1 g/dL (12.0-16.0); Lymphocytes Absolute Auto 1800 /uL (1100-4500); Lymphocytes Percent Auto 21.5 % (25-40); Mean Corpuscular Hemoglobin 29.8 PG (26-34); Mean Corpuscular Volume 90.2 fL (80-100); Monocytes Absolute Auto 1100 /uL (0-900); Monocytes Percent Auto 13.1 % (3-14); Neutrophils Absolute Auto 5000 /uL (1500-7000); Neutrophils Percent Auto 58.6 % (50-75); Platelet Count 359 X10^3/uL (150-400); Red Cell Distribution Width 13.8 % (11.6-14.8); White Blood Cell Count 8.6 X10^3/uL (4.5-11.0)
[2024-02-29 18:03] LABS: Alanine Aminotransferase 18 IU/L (<35); Albumin 3.9 g/dL (3.5-5.0); Albumin Globulin Ratio 1.4 (1.0-2.8); Alkaline Phosphatase 66 U/L (38-126); Aspartate Aminotransferase 29 IU/L (14-36); BUN Creatinine Ratio 22.2 (6-22); Bilirubin Total 0.3 mg/dL (0.2-1.3); Blood Urea Nitrogen 18 mg/dL (7-17); Calcium 10.6 mg/dL (8.4-10.2); Carbon Dioxide 28 mmol/L (22-32); Chloride 103 mmol/L (98-107); Estimated Glomerular Filt Rate > 60 mL/min (>60); Globulin 2.8 g/dL (1.7-4.1); Glucose 95 mg/dL (80-110); HEMOLYSIS < 15 (0-50); Potassium 4.1 mmol/L (3.4-5.1); Sodium 138 mmol/L (137-145); Total Protein 6.7 g/dL (6.3-8.2)
[2024-02-29 18:12] LABS: NT-proBNP (BNP-Adult 18+) 297 pg/mL (<450)
== END ==
LOC: LAB 16:40
PROVIDERS: Family Provider Family Medicine; PCP Family Medicine; Referring Provider Family Medicine; Visit Provider Family Medicine
DX: R06.00 Dyspnea, unspecified (principal); I10 Essential (primary) hypertension; R09.89 Other specified symptoms and signs involving the circulatory and respiratory systems; R25.2 Cramp and spasm
CPT/HCPCS: 36415; 80053; 83880; 85025

== ENCOUNTER → 2024-03-07 12:56 | Outpatient (CLI) | payer MEDICARE, OTHER, SELFPAY ==
--- NOTE | 2024-03-07 12:58 | DI.CT.S_ITS ---
PROCEDURE: CT CHEST W CON INDICATIONS: dyspnea, abnormal CXR, chronic cough TECHNIQUE: After the administration of intravenous contrast, 5 mm thick sections acquired from the pulmonary apices to the posterior costophrenic angles. 1 mm axial lung, 5 mm thick coronal and sagittal reformats and 7 mm axial MIP were acquired. For radiation dose reduction, the following was used: automated exposure control, adjustment of mA and/or kV according to patient size. COMPARISON: [facility], CR, XR CHEST 2V, 02/28/2024, 17:10. FINDINGS: Image quality: Diagnostic Lungs and pleura: Reticular opacities predominantly affecting the periphery of the lung, without definite honeycombing. No dense consolidation or pleural effusions. Small fat containing Bochdalek's hernias. No pleural effusions. There are small pulmonary nodules measuring up to 6 mm for example in the right image . Mediastinum, heart, and esophagus: Mild nonspecific distal esophageal wall thickening. Coronary calcifications. Cardiomegaly. Non ectatic main pulmonary trunk. No pathologic lymph nodes by size criteria. Chest wall and thyroid: Multiple right thyroid nodules, the larger 1 measuring 1.7 cm right breast implant. Left breast postsurgical changes and axillary clips. Upper abdomen: No gross abnormality where visualized Bones: There are degenerative changes. IMPRESSION: Moderate findings of interstitial lung disease. Small pulmonary nodules are present measuring up to 6 mm. Consider correlation with PFTs and high-resolution chest CT to further characterize and for surveillance. Multiple right thyroid nodules measuring up to 1.7 cm. Nonurgent thyroid ultrasound could be obtained. Dictated by: Xavier Pagan M.D. on 03/07/2024 at 16:56 Approved by: Xavier Pagan M.D. on 03/07/2024 at 17:00
[2024-03-07 17:33] LABS: Vitamin D 25 Hydroxy (D3) 45.4 ng/mL (30.0-100.0)
[2024-03-09 19:07] LABS: Calcium 10.2 mg/dL (8.7-10.3); Parathyroid Hormone, Intact 23 pg/mL (15-65)
[2024-03-09 20:08] LABS: Free Kappa Lt Chains, Serum 20.9 mg/L (3.3-19.4); Free Lambda Lt Chains,Serum 16.6 mg/L (5.7-26.3)
== END ==
LOC: CT 12:57
PROVIDERS: Family Provider Family Medicine; PCP Family Medicine; Referring Provider Family Medicine; Visit Provider Family Medicine
DX: J84.9 Interstitial pulmonary disease, unspecified (principal); I51.7 Cardiomegaly; E04.2 Nontoxic multinodular goiter; I25.10 Atherosclerotic heart disease of native coronary artery without angina pectoris; E83.52 Hypercalcemia; R91.8 Other nonspecific abnormal finding of lung field; R06.00 Dyspnea, unspecified; R93.89 Abnormal findings on diagnostic imaging of other specified body structures; R05.3 Chronic cough
CPT/HCPCS: 36415; 71260; 82306; 82310; 83883; 83970; 84155; 84165; 86480; Q9967

== ENCOUNTER → 2024-03-22 13:57 | Outpatient (CLI) | payer MEDICARE, OTHER, SELFPAY ==
[2024-03-25 23:36] LABS: QuantiFERON Mitogen Value >10.00 IU/mL (.); QuantiFERON TB Gold Plus Negative (Negative); QuantiFERON TB1 Ag Value 0.01 IU/mL (.); QuantiFERON TB2 Ag Value 0.01 IU/mL (.)
== END ==
PROVIDERS: Family Provider Family Medicine; PCP Family Medicine; Referring Provider Family Medicine; Visit Provider Family Medicine
DX: R93.89 Abnormal findings on diagnostic imaging of other specified body structures (principal); E83.52 Hypercalcemia; R05.3 Chronic cough
CPT/HCPCS: 36415; 86480

== ENCOUNTER → 2024-04-12 09:40 | Outpatient (CLI) | payer MEDICARE, OTHER, SELFPAY | LOC: RESP 09:41 | PROVIDERS: Family Provider Family Medicine; PCP Family Medicine; Referring Provider Family Medicine; Visit Provider Family Medicine | DX: R93.89 Abnormal findings on diagnostic imaging of other specified body structures (principal); R06.09 Other forms of dyspnea; R06.02 Shortness of breath; Z87.891 Personal history of nicotine dependence; R94.2 Abnormal results of pulmonary function studies | CPT/HCPCS: 94060; 94729 ==

== ENCOUNTER → 2024-04-16 09:19 | Outpatient (CLI) | payer MEDICARE, OTHER, SELFPAY ==
--- NOTE | 2024-04-16 09:19 | DI.ECHO.S_ITS ---
[place] [facility]---------+ [facility] : : [address] : : [place] : : [id number] : : Phone: [phone] Echocardiogram Report + + :Name: HAZEL MITCHELL Study Date: 04/16/2024 Height: 64 in : :[facility] ReadingLocation: Weight: 135 lb : : Gender: Female BSA: 1.7 m2 : :: 1935 Age: 88 yrs BP: 142/82 mmHg: :Reason For Study: DYPSNEA, ABNORMAL CXR : :Ordering Physician: ASCENCION, : :NATHAN Performed By: Jim Jones : :Referring: NATHAN VEGAS : + + Interpretation Summary The ejection fraction is estimated to be 50-55%. Grade I diastolic dysfunction. The right ventricle is normal in size and function. The right ventricular systolic pressure is estimated to be at least 31 mmHg based on an estimated right atrial pressure of 3 mm Hg. The left atrium is severely dilated. There is mild to moderate mitral regurgitation. There is mild tricuspid regurgitation. Procedure: A two-dimensional transthoracic echocardiogram with color flow and Doppler was performed. The study quality was technically good. There is no prior echocardiogram noted for this patient. The patient was in normal sinus rhythm during the exam. Left Ventricle: The left ventricle is normal in size. There is normal left ventricular wall thickness. There is no ventricular septal defect visualized. The ejection fraction is estimated to be 50-55%. There is a borderline dyssynchronous contraction pattern, consistent with a conduction abnormality. Grade I diastolic dysfunction. Right Ventricle: The right ventricle is normal in size and function. Atria: The left atrium is severely dilated. Right atrial size is normal. There is no Doppler evidence for an interatrial shunt. Mitral Valve: The mitral valve leaflets appear normal. There is no evidence of stenosis, fluttering, or prolapse. There is mild to moderate mitral regurgitation. Aortic Valve: The aortic valve is trileaflet. Calcified NCC. The aortic valve opens well. There is no hemodynamically significant valvular aortic stenosis. There is trace aortic regurgitation. Tricuspid Valve: The tricuspid valve leaflets are thin and pliable. There is mild tricuspid regurgitation. The right ventricular systolic pressure is estimated to be at least 31 mmHg based on an estimated right atrial pressure of 3 mm Hg. Pulmonic Valve: The pulmonic valve leaflets are thin and pliable; valve motion is normal. There is trace pulmonic regurgitation. Great Vessels: The aortic root is normal size. The ascending aorta is at the upper limits of normal in size. The pulmonary artery is normal size. The IVC is of normal diameter and collapses greater than 50% with a sniff. This suggests a low right atrial pressure of 3 mm Hg. Pericardium/ Pleura There is no pericardial effusion. There is no pleural effusion. MMode/2D Measurements & Calculations LVIDd: 5.1 cm LVOT diam: 2.0 cm LVIDs: 3.4 cm Ao root diam: 3.6 cm FS: 32.9 % asc Aorta Diam: 3.7 cm EPSS: 1.1 cm IVSd: 0.97 cm LVPWd: 0.81 cm LV morel. diameter/BSA (cm/m^2): 3.1 LV sys. diameter/BSA (cm/m^2): 2.1 LA A2 area: 25.2 cm2 RA long axis: 5.5 cm LA A4 area: 26.7 cm2 RA area: 13.5 cm2 LA length (vol): 6.5 cm RA vol: 28.3 ml LA vol: 87.5 ml RA : 17.1 ml/m2 LA vol index: 52.9 ml/m2 IVC diam: 1.6 cm RVD1 (basal): 3.6 cm RVD2 (mid): 3.3 cm TAPSE: 1.8 cm Doppler Measurements & Calculations Ao V2 max: 130.2 cm/sec LVOT Max Zheng: 110.0 cm/sec Ao V2 mean: 89.3 cm/sec LV V1 max P.8 mmHg Ao max P.8 mmHg LV V1 VTI: 29.6 cm Ao mean P.6 mmHg NATACHA(I,D): 3.0 cm2 Ao V2 VTI: 30.9 cm NATACHA(V,D): 2.6 cm2 sev ratio: 0.96 NATACHA indexed to BSA (cm^2/m^2): 1.8 MV E max zheng: 63.5 cm/sec TR max zheng: 262.6 cm/sec MV A max zheng: 94.4 cm/sec TR max P.6 mmHg MV E/A: 0.67 PA V2 max: 66.8 cm/sec Med Peak E' Zheng: 3.9 cm/sec PA V2 mean: 46.7 cm/sec E/E' med: 16.5 PA mean P.97 mmHg Lat Peak E' Zheng: 7.2 cm/sec PA pr(Accel): 43.0 mmHg E/E' lat: 8.8 E/e' average: 12.7 MV dec time: 0.22 sec [facility] 92.3 ml Reading Physician:MERCEDES
== END ==
PROVIDERS: Family Provider Family Medicine; PCP Family Medicine; Referring Provider Family Medicine; Visit Provider Family Medicine
DX: R06.00 Dyspnea, unspecified (principal); R55 Syncope and collapse; R00.1 Bradycardia, unspecified; I08.1 Rheumatic disorders of both mitral and tricuspid valves; R06.09 Other forms of dyspnea; R93.89 Abnormal findings on diagnostic imaging of other specified body structures; R94.2 Abnormal results of pulmonary function studies; E04.1 Nontoxic single thyroid nodule; I48.91 Unspecified atrial fibrillation
CPT/HCPCS: 93306; 94010; 94070; 94618

== ENCOUNTER → 2024-04-16 10:06 | Outpatient (CLI) | payer MEDICARE, OTHER, SELFPAY | PROVIDERS: Family Provider Family Medicine; PCP Family Medicine; Referring Provider Family Medicine; Visit Provider Family Medicine | DX: R06.09 Other forms of dyspnea (principal); R93.89 Abnormal findings on diagnostic imaging of other specified body structures; R94.2 Abnormal results of pulmonary function studies; E04.1 Nontoxic single thyroid nodule; I48.91 Unspecified atrial fibrillation | CPT/HCPCS: 94070 ==

== ENCOUNTER → 2024-06-07 15:48 | Outpatient (CLI) | payer MEDICARE, OTHER, SELFPAY ==
[2024-06-07 16:18] LABS: Add Manual Diff / Slide Review NO; Basophils Absolute Auto 100 /uL (0-100); Eosinophils Absolute Auto 300 /uL (0-450); Eosinophils Percent Auto 3.6 % (2-4); Hematocrit 37.1 % (36-46); Hemoglobin 12.3 g/dL (12.0-16.0); Lymphocytes Absolute Auto 2100 /uL (1100-4500); Lymphocytes Percent Auto 25.2 % (25-40); Mean Corpuscular HGB Conc 33.1 % (30-36); Mean Corpuscular Hemoglobin 30.2 PG (26-34); Mean Corpuscular Volume 91.1 fL (80-100); Monocytes Absolute Auto 900 /uL (0-900); Monocytes Percent Auto 10.4 % (3-14); Neutrophils Absolute Auto 4900 /uL (1500-7000); Neutrophils Percent Auto 59.8 % (50-75); Platelet Count 333 X10^3/uL (150-400); Red Blood Cell Count 4.07 X10^6/uL (4.0-5.2); Red Cell Distribution Width 14.8 % (11.6-14.8); White Blood Cell Count 8.2 X10^3/uL (4.5-11.0)
[2024-06-07 17:05] LABS: Thyroid Stimulating Hormone 0.893 uIU/mL (0.47-4.68)
[2024-06-09 09:36] LABS: Ionized Calcium 5.1 mg/dL (4.5-5.6)
== END ==
LOC: LAB 15:49
PROVIDERS: Family Provider Family Medicine; PCP Family Medicine; Referring Provider Family Medicine; Visit Provider Family Medicine
DX: I48.91 Unspecified atrial fibrillation (principal); E04.1 Nontoxic single thyroid nodule; I49.5 Sick sinus syndrome
CPT/HCPCS: 36415; 82330; 84443; 85025

== ENCOUNTER → 2024-06-12 10:38 | Outpatient (CLI) | payer MEDICARE, OTHER, SELFPAY ==
[2024-06-12 11:52] LABS: Add Manual Diff / Slide Review NO; Basophils Absolute Auto 100 /uL (0-100); Basophils Percent Auto 0.9 % (0-2); Eosinophils Absolute Auto 200 /uL (0-450); Eosinophils Percent Auto 1.9 % (2-4); Hematocrit 38.9 % (36-46); Hemoglobin 12.9 g/dL (12.0-16.0); Lymphocytes Absolute Auto 1400 /uL (1100-4500); Lymphocytes Percent Auto 17.2 % (25-40); Mean Corpuscular HGB Conc 33.2 % (30-36); Mean Corpuscular Hemoglobin 30.2 PG (26-34); Mean Corpuscular Volume 90.8 fL (80-100); Monocytes Absolute Auto 700 /uL (0-900); Monocytes Percent Auto 8.8 % (3-14); Neutrophils Absolute Auto 5800 /uL (1500-7000); Neutrophils Percent Auto 71.2 % (50-75); Platelet Count 351 X10^3/uL (150-400); Red Blood Cell Count 4.29 X10^6/uL (4.0-5.2); Red Cell Distribution Width 14.9 % (11.6-14.8); White Blood Cell Count 8.1 X10^3/uL (4.5-11.0)
[2024-06-12 12:13] LABS: Blood Urea Nitrogen 19 mg/dL (7-17); Calcium 10.3 mg/dL (8.4-10.2); Carbon Dioxide 23 mmol/L (22-32); Chloride 106 mmol/L (98-107); Estimated Glomerular Filt Rate > 60 mL/min (>60); Glucose 86 mg/dL (80-110); HEMOLYSIS < 15 (0-50); Potassium 4.6 mmol/L (3.4-5.1); Sodium 138 mmol/L (137-145)
== END ==
PROVIDERS: Family Provider Family Medicine; PCP Family Medicine; Referring Provider Internal Medicine Cardiovascular Disease; Visit Provider Internal Medicine Cardiovascular Disease
DX: I49.5 Sick sinus syndrome (principal)
CPT/HCPCS: 36415; 80048; 85025

== ENCOUNTER → 2024-11-02 13:04 | Outpatient (CLI) | payer MEDICARE, OTHER, SELFPAY | PROVIDERS: Family Provider Family Medicine; PCP Family Medicine; Visit Provider Physician Assistant Medical | DX: S90.421A Blister (nonthermal), right great toe, initial encounter (principal) | CPT/HCPCS: 87070; 87075; 87205 ==

== ENCOUNTER → 2025-01-17 11:26 | Outpatient (CLI) | payer MEDICARE, OTHER, SELFPAY ==
[2025-01-17 18:35] LABS: Hematocrit 36.2 % (36-46); Hemoglobin 12.1 g/dL (12.0-16.0); Mean Corpuscular HGB Conc 33.5 % (30-36); Mean Corpuscular Hemoglobin 30.9 PG (26-34); Mean Corpuscular Volume 92.3 fL (80-100); Platelet Count 385 X10^3/uL (150-400)
[2025-01-17 19:07] LABS: Alanine Aminotransferase 16 IU/L (<35); Albumin 4.0 g/dL (3.5-5.0); Albumin Globulin Ratio 1.6 (1.0-2.8); Alkaline Phosphatase 71 U/L (38-126); Blood Urea Nitrogen 18 mg/dL (7-17); Calcium 9.5 mg/dL (8.4-10.2); Carbon Dioxide 25 mmol/L (22-32); Chloride 104 mmol/L (98-107); Cholesterol 140 mg/dL (140-199); Estimated Glomerular Filt Rate > 60 mL/min (>60); Globulin 2.5 g/dL (1.7-4.1); Glucose 105 mg/dL (70-99); HDL Cholesterol 55 mg/dL (40-60); HEMOLYSIS < 15 (0-50); Potassium 4.6 mmol/L (3.4-5.1); Sodium 138 mmol/L (137-145); Total Protein 6.5 g/dL (6.3-8.2); Triglycerides 126 mg/dL (35-150)
[2025-01-17 19:23] LABS: Vitamin D 25 Hydroxy (D3) 33.0 ng/mL (30.0-100.0)
[2025-01-17 19:37] LABS: Thyroid Stimulating Hormone 0.890 uIU/mL (0.47-4.68)
== END ==
PROVIDERS: Family Provider Family Medicine; PCP Family Medicine; Visit Provider Family Medicine
DX: I48.0 Paroxysmal atrial fibrillation (principal); M81.0 Age-related osteoporosis without current pathological fracture; I10 Essential (primary) hypertension; Z85.3 Personal history of malignant neoplasm of breast; E78.2 Mixed hyperlipidemia; E83.52 Hypercalcemia
CPT/HCPCS: 80053; 80061; 82306; 84443; 85027

== ENCOUNTER → 2025-02-22 12:40 | Outpatient (CLI) | payer MEDICARE, OTHER, SELFPAY ==
--- NOTE | 2025-02-22 12:42 | DI.US.S_ITS ---
PROCEDURE: US THYROID
== END ==
PROVIDERS: Family Provider Family Medicine; PCP Family Medicine; Referring Provider Family Medicine; Visit Provider Family Medicine
DX: E04.2 Nontoxic multinodular goiter (principal)
CPT/HCPCS: 76536

== ENCOUNTER → 2025-03-20 09:12 | Outpatient (CLI) | payer MEDICARE, OTHER, SELFPAY ==
--- NOTE | 2025-03-20 | PATH_ITS ---
Note [facility] Accession Number: [id number] TESTS RESULT FLAG UNITS REF RANGE LAB Clinician Provided Cytology Information No. of containers..08 Previously Prepared Cytology Slide 35 Unknown Storage/container code(s) Source: RIGHT POSTERIOR/MID DIAGNOSIS: RIGHT POSTERIOR/MID THYROID NODULE, FINE NEEDLE ASPIRATION. INADEQUATE, INSUFFICIENT CELLS FOR STUDY. [place] CATEGORY I. Pathologist ICD10: E04.1 Signed out by: Ambrocio Pringle MD, Pathologist NPI- [id number] Performed by: Sunday Guadalupe, Japanese Tutor ([facility]) Gross description: 25 CC, PINK, CLEAR RECEIVED IN CYTOLYT WITH 9 ALCOHOL FIXED AND 9 QUICK STAINED SLIDES 1 RNA WILL BE ON:10/22/2026. /[facility] 03/21/[address] [place] [address] FLAG LEGEND: L-Low Normal,H-High Normal,LL-Alert Low,HH-Alert High <-Panic Low,>-Panic High,A-Abnormal,AA-Critical Abnormal Performed at: 01 =Z [facility], [place] [address] Konstantin Scales MD, Specimen Comment: A duplicate report has been generated due to demographic updates. Performed at: [facility] [address] [place] [address] [address], [place], [place] [id number] MD Konstantin Scales MD Phone: [phone]
--- NOTE | 2025-03-20 09:18 | DI.US.S_ITS ---
PROCEDURE: US FINE NEEDLE ASPIRATION INDICATIONS: RIGHT POSTERIOR/MID THYROID NODULE TECHNIQUE: The indications, alternatives, benefits, risks, and complications of the procedure were explained to the patient. Written informed consent was obtained and placed in the chart. The thyroid region was examined sonographically and a site was chosen for ultrasound guided percutaneous sampling. The skin was prepared and draped in the usual fashion, and anesthetized with 1% lidocaine infiltrated from the skin down to the thyroid gland. Multiple passes were then performed, with contents emptied into an appropriate pathology specimen container. A bandage was applied to the area of access at completion of the study. COMPARISON: None. FINDINGS: Location(s) of lesion(s) sampled: Right thyroid lobe posterior/mid [place]: 25 gauge hypodermic needles. Number of passes: 9 Medications: 1% lidocaine for local anaesthesia. Complications: None. IMPRESSION: Successful ultrasound-guided thyroid nodule fine needle aspiration, with cytology results pending. Please see chart below for management recommendations based on cytology results. [place] ReportingRecommendationsNon-diagnostic* Repeat US-guided FNA, with on-site cytology evaluation if possible. * Repeated non-diagnostic nodules without high suspicion US features: close observation vs surgical consult. * Consider surgery if nodule has high suspicion US features, grows >20% in 2 dimensions on followup, or patient has clinical risk factors for malignancy. Benign* If nodule has high suspicion US features: repeat US and FNA within 12 months. * If nodule has low to intermediate suspicion US features: repeat US at 12-24 months. If nodule grows (20% increase in at least 2 dimensions, with minimal increase of 2 mm or >50% change in volume), or development of new suspicious US features, then repeat FNA or continue followup. * If nodule has very low suspicion US features: followup US at >24 months. Atypia of undetermined significance, follicular lesion of undetermined significanceRepeat FNA, molecular testing, followup US, or surgical consult.Follicular neoplasm, suspicious for follicular neoplasmSurgical consult; also consider molecular testing. Suspicious for malignancySurgical consult.MalignantSurgical consult. Dictated by: Herminio Montano M.D. on 03/20/2025 at 12:03 Approved by: Herminio Montano M.D. on 03/20/2025 at 12:05
== END ==
LOC: US 09:16
PROVIDERS: Family Provider Family Medicine; PCP Family Medicine; Referring Provider Family Medicine; Visit Provider Family Medicine
DX: E04.1 Nontoxic single thyroid nodule (principal)
CPT/HCPCS: 10005